=== PATIENT | male | born 1955 | race Caucasian/White ===

== ENCOUNTER → 2018-03-18 15:08 | Outpatient (CLI) | payer BC, SELFPAY ==
[2018-03-18 18:10] LABS: Anion Gap 9 (5-15); BUN 17 mg/dL (7-18); BUN/Creat Ratio 19.6 RATIO (10-20); Calcium,Total 8.8 mg/dL (8.5-10.1); Chloride 103 mmol/L (98-107); Creatinine, Serum 0.87 mg/dL (0.70-1.30); EST Glomerular Filtration Rate 94 mL/min (>60); Est Glom Filt Rate - Afr Amer 114 mL/min (>60); Glucose 141 mg/dL (74-106); PSA,Total - Annual Screen 0.58 ng/mL (0.00-4.00); Potassium 3.7 mmol/L (3.5-5.1); Sodium Level 138 mmol/L (136-145)
== END ==
PROVIDERS: Family Provider Family Medicine; PCP Family Medicine; Visit Provider Family Medicine
DX: I10 Essential (primary) hypertension (principal); Z12.5 Encounter for screening for malignant neoplasm of prostate
CPT/HCPCS: 36415; 80048; 84153; G0103

== ENCOUNTER → 2019-03-08 08:18 | Outpatient (CLI) | payer BC, SELFPAY ==
[2019-03-08 10:30] LABS: ALB/GLOB Ratio 1.1 RATIO (0.9-2.4); AST(SGOT) 19 U/L (15-37); Alanine Aminotransfer ALT/SGPT 39 U/L (16-61); Albumin, Serum 3.8 g/dL (3.2-5.0); Alkaline Phosphatase 73 U/L (45-117); Anion Gap 5 (5-15); BUN 15 mg/dL (7-18); BUN/Creat Ratio 16.2 RATIO (10-20); Chloride 104 mmol/L (98-107); Cholesterol 136 mg/dL (200); Creatinine, Serum 0.92 mg/dL (0.70-1.30); EST Glomerular Filtration Rate 87 mL/min (>60); Est Glom Filt Rate - Afr Amer 105 mL/min (>60); Globulin 3.6 g/dL (2.2-4.2); Glucose 86 mg/dL (74-106); High Density Lipoprotein 40 mg/dL; PSA,Total - Annual Screen 0.59 ng/mL (0.00-4.00); Potassium 3.9 mmol/L (3.5-5.1); Protein, Total 7.4 g/dL (6.4-8.2); Sodium Level 138 mmol/L (136-145); Triglycerides 126 mg/dL; Very Low Density Lipoprotein 25 mg/dL (5-40)
== END ==
PROVIDERS: PCP Family Medicine; Referring Provider Family Medicine; Visit Provider Family Medicine
DX: I10 Essential (primary) hypertension (principal); Z12.5 Encounter for screening for malignant neoplasm of prostate
CPT/HCPCS: 36415; 80053; 80061; 84153; G0103

== ENCOUNTER → 2020-03-01 07:13 | Outpatient (CLI) | payer BC, SELFPAY ==
[2020-03-01 10:57] LABS: ALB/GLOB Ratio 1.1 RATIO (0.9-2.4); AST(SGOT) 22 U/L (15-37); Alanine Aminotransfer ALT/SGPT 35 U/L (16-61); Albumin, Serum 3.9 g/dL (3.2-5.0); Alkaline Phosphatase 78 U/L (45-117); Anion Gap 5 (5-15); BUN 18 mg/dL (7-18); BUN/Creat Ratio 21.3 RATIO (10-20); Calcium,Total 8.9 mg/dL (8.5-10.1); Chloride 104 mmol/L (98-107); Cholesterol 135 mg/dL (200); Creatinine, Serum 0.85 mg/dL (0.70-1.30); EST Glomerular Filtration Rate 96 mL/min (>60); Est Glom Filt Rate - Afr Amer 117 mL/min (>60); Globulin 3.4 g/dL (2.2-4.2); Glucose 88 mg/dL (74-106); High Density Lipoprotein 40 mg/dL; PSA,Total - Annual Screen 0.69 ng/mL (0.00-4.00); Potassium 3.9 mmol/L (3.5-5.1); Protein, Total 7.3 g/dL (6.4-8.2); Sodium Level 137 mmol/L (136-145); Triglycerides 134 mg/dL; Very Low Density Lipoprotein 27 mg/dL (5-40)
== END ==
PROVIDERS: PCP Family Medicine; Referring Provider Family Medicine; Visit Provider Family Medicine
DX: Z12.5 Encounter for screening for malignant neoplasm of prostate (principal); I10 Essential (primary) hypertension
CPT/HCPCS: 36415; 80053; 80061; 84153; G0103

== ENCOUNTER 2021-04-01 08:11 | Outpatient (CLI) | payer BC, SELFPAY ==
[2021-04-01 12:21] LABS: ALB/GLOB Ratio 1.1 RATIO (0.9-2.4); AST(SGOT) 22 U/L (15-37); Alanine Aminotransfer ALT/SGPT 32 U/L (16-61); Albumin, Serum 3.9 g/dL (3.2-5.0); Alkaline Phosphatase 77 U/L (45-117); Anion Gap 5 (5-15); BUN 18 mg/dL (7-18); BUN/Creat Ratio 18.3 RATIO (10-20); Chloride 106 mmol/L (98-107); Creatinine, Serum 0.99 mg/dL (0.70-1.30); EST Glomerular Filtration Rate 80 mL/min (>60); Est Glom Filt Rate - Afr Amer 97 mL/min (>60); Globulin 3.5 g/dL (2.2-4.2); Glucose 96 mg/dL (74-106); Potassium 4.1 mmol/L (3.5-5.1); Protein, Total 7.4 g/dL (6.4-8.2); Sodium Level 138 mmol/L (136-145)
[2021-04-01 13:25] LABS: Microalbumin,Random Urine 16.5 mg/L (NO RANGE EST.); Microalbumin:Creatinine Ratio 8.7 mg/g CRE (<30 mg/g CRE)
== END 2021-04-01 23:59 | disposition home or self-care (01) ==
PROVIDERS: PCP Family Medicine; Visit Provider Family Medicine
DX: I10 Essential (primary) hypertension (principal)
CPT/HCPCS: 36415; 80053; 82043; 82570

== ENCOUNTER → 2022-04-04 | Outpatient (CLI) | payer BC, SELFPAY ==
[2022-04-04 10:10] LABS: Absolute Lymphocyte Count 1.73 X10^3/uL (0.83-4.51); Absolute Neutrophil Count 4.4 X10^3/uL (2.0-7.7); Basophil# 0.09 X10^3/uL; Basophil% 1.2 % (0-1); Eosinophil# 0.14 X10^3/uL; Eosinophils% 1.9 % (0-5); Hematocrit 45.5 % (40-54); Hemoglobin 15.5 g/dL (13.0-16.5); Lymphocyte # 1.73 X10^3/ul (0.83-4.51); Lymphocyte % 23.7 % (19-41); Mean Corp Hgb Conc 34.1 g/dL (32-36); Mean Platelet Vol. 10.1 fl (6.2-12.0); Monocyte# 0.96 X10^3/uL; Monocyte% 13.1 % (0-10); NRBC Flagged by Analyzer 0 % (0-5); Neutrophil # 4.35 X10^3/uL (2.7-7.7); Neutrophil % 59.6 % (47-70); Platelet Count 246 K/mm3 (150-450); RBC Distribution Width CV 12.2 % (11.6-14.6); RBC Distribution Width SD 39.7 fl (35.1-43.9); Red Blood Count 5.17 M/mm3 (4.6-6.2); White Blood Count 7.3 K/mm3 (4.4-11.0)
[2022-04-04 10:25] LABS: Microalbumin,Random Urine 12.6 mg/L (NO RANGE EST.)
[2022-04-04 11:06] LABS: ALB/GLOB Ratio 1.1 RATIO (0.9-2.4); AST(SGOT) 23 U/L (15-37); Alanine Aminotransfer ALT/SGPT 25 U/L (16-61); Albumin, Serum 3.7 g/dL (3.2-5.0); Alkaline Phosphatase 77 U/L (45-117); Anion Gap 7 (5-15); BUN 18 mg/dL (7-18); BUN/Creat Ratio 21.4 RATIO (10-20); Calcium,Total 9.1 mg/dL (8.5-10.1); Chloride 105 mmol/L (98-107); Cholesterol 133 mg/dL (200); Creatinine, Serum 0.84 mg/dL (0.70-1.30); EST Glomerular Filtration Rate 96 mL/min (>60); Est Glom Filt Rate - Afr Amer 117 mL/min (>60); Globulin 3.5 g/dL (2.2-4.2); Glucose 91 mg/dL (74-106); High Density Lipoprotein 43 mg/dL; Potassium 4.1 mmol/L (3.5-5.1); Protein, Total 7.2 g/dL (6.4-8.2); Sodium Level 138 mmol/L (136-145); Triglycerides 99 mg/dL; Very Low Density Lipoprotein 20 mg/dL (5-40)
== END | disposition home or self-care (01) ==
LOC: MFPLAB 08:12
PROVIDERS: PCP Family Medicine; Referring Provider Family Medicine; Visit Provider Family Medicine
DX: I10 Essential (primary) hypertension (principal); Z12.5 Encounter for screening for malignant neoplasm of prostate
CPT/HCPCS: 36415; 80053; 80061; 82043; 84153; 85025; G0103

== ENCOUNTER → 2023-03-27 | Outpatient (CLI) | payer MEDICARE, SELFPAY ==
--- OUTSIDE RECORDS SUMMARY | 2023-03-27 08:30 | XMS RPT_ITS | CCD ---
Author Name Unknown Address [address] [place] [address] Organization [facility] Results Test Name Value Interpretation Reference Range Facil ity Progress note 01-16-2021 Note Date & Type Note Facility 01-16-2021 Note HNO ID: [id number] Author: Victoria Worthy PA-C Service: ? Author Type: Physician Marketing Teacher Type: Progress Notes Filed: 01/17/2021 12:11 PM Note Text: FOLLOW UP VISIT - HERNIA NAME: Kareem Koroma CLINIC NO.: [id number] DATE OF SERVICE: 01/16/2021 : 1955 REFERRING PHYSICIAN: Se Landeros MD Kareem is a patient I am following for a left inguinal hernia. Dr. Cuello performed a laparoscopic left inguinal hernia repair with mesh on 01/09/21. The patient currently notes no major complaints. his appetite has been good. he denies fever, chills or abdominal pain. he does note some mild incisional discomfort. he notes no bulges at the operative site VITALS: Blood pressure 150/81, pulse 104, temperature 36.9 ?C (98.4 ?F), height 185.4 cm (6' 1 ), weight 96.6 kg (213 lb), SpO2 96 %. General: patient is alert, cooperative, pleasant and in no acute distress On examination, the abdomen is benign. The incisions are healing well without signs of infection or inflammation. There are no signs of recurrent hernia formation. Assessment IMPRESSION: status post laparoscopic left inguinal hernia repair with mesh PLAN: If the patient notes any problems, he should contact me immediately. he may return to his regular activities as tolerated, with the exception of no lifting greater than 20 pounds for the next 7 weeks. If patient feels the urge to cough or sneeze, they should brace against the repair site with their hands or a pillow. Diagnoses: (Z98.890, Z87.19) S/P hernia repair (primary encounter diagnosis) Return to Clinic: The patient is instructed to follow-up with me as needed. Patient verbalized understanding of all above and agreed with the plan. Victoria Worthy PA-C [facility] Clinical Note 01-09-2021 Note Date & Type Note Facility 01-09-2021 Note HNO ID: [id number] Author: Nikunj Jacobsen APRN.BARBECUE COOK Service: Anesthesiology Author Type: Nurse Needle Felt Making Machine Operator Type: Anesthesia Procedure Notes Filed: 01/09/2021 7:56 AM Note Text: ANESTHESIOLOGY PROCEDURE NOTE Airway General Information Procedure Start Time/Medication Administration: 01/09/2021 7:40 AM Procedure End Time: 01/09/2021 7:44 AM Patient location during procedure: OR Timeout Performed Pre-procedure: timeout performed Consent Obtained: Yes Patient identity confirmed: arm band, care receiving team member and patient Staffing BARBECUE COOK: Nikunj Jacobsen APRN.DAVID Other anesthesia staff/rotator: Nikunj Jacobsen APRN.BARBECUE COOK Performed by: DAVID Indications and Patient Condition Preoxygenated: yes Patient position: sniffing Manual In-Line Stabilization: No Difficult Mask: No Indications for airway management: anesthesia anesthesia circuit Method: asleep Cricoid Pressure: Yes Final Airway Details Final airway type: endotracheal airway Final Endotracheal Airway: ETT Cuffed: yes Successful intubation technique: direct laryngoscopy Endotracheal tube insertion site: oral Blade: Guru Blade size: #4 ETT size (mm): 7.5 Measured from: lips Measurement (cm): 22 Placement verified by: chest auscultation and capnometry Cormack-Lehane Classification: grade IIb - view of arytenoids or posterior of glottis only Number of attempts at approach: 1 Failed airway: no Unrecognized esophageal intubation: no Airway not difficult SIGNATURE: Nikunj Jacobsen APRN.BARBECUE COOK PATIENT NAME: Kareem Koroma DATE: January 09, 2021 TIME: 7:52 AM CSN: [id number] [facility] Progress note 12-24-2020 Note Date & Type Note Facility 12-24-2020 Note HNO ID: [id number] Author: Fredy Cuello MD Service: ? Author Type: Physician Type: Progress Notes Filed: 12/24/2020 2:27 PM Note Text: HISTORY AND PHYSICAL Kareem Koroma 1955 REFERRING PHYSICIAN: Se Landeros MD CHIEF COMPLAINT: Consult HPI: Kareem is a 65 year old male with a complaint of a bulge and discomfort in his left inguinal region. The patient notes discomfort in this area with lifting. The symptoms have maintained, over the past 3 weeks. The patient notes no symptoms of bowel obstruction and denies nausea or vomiting. The patient was seen by his primary care physician who felt the patient has a hernia. Kareem was referred for evaluation and treatment. The patient is being seen by me today at the request of Dr. Se Landeros MD for my opinion and advice regarding Left inguinal hernia (primary encounter diagnosis). PAST MEDICAL HISTORY Diagnosis Date - Diverticulosis of colon (without mention of hemorrhage) - Unspecified essential hypertension Essential hypertension PAST SURGICAL HISTORY Procedure Laterality Date - COLONOSCOP W/ OR W/O [facility] SPEC 08/18/08 - LAP REPAIR INTIAL INGUINAL HERNIA 05-29-06 right inguinal - REMOVE TONSILS/ADENOIDS,<12 Y/O T/A (under age 12 years) Current Outpatient Medications Medication Sig - triamcinolone acetonide (NASACORT AQ NASAL) Use in the nose. - losartan (COZAAR) 50 mg tablet Take 50 mg by mouth once daily. - D3-red gicy-lrenrqpbtdc-nkwn (SUPER-D3+) 5,000-200 unit-mg cap Take by mouth once daily. - HYDROCHLOROTHIAZIDE 12.5 MG CAP Take 25 mg by mouth. - VITAMIN C 500 MG TAB Take one(1) tablet daily. - loratadine(CLARITIN 10 MG TAB) Take one(1) tablet daily as needed for allergy symptoms. (Patient not taking: ) - VITAMIN E 400 UNIT CAP Take one(1) tablet daily. (Patient not taking: Swallow whole. DO NOT crush or break. ) No current facility-administered medications for this visit. ALLERGIES: Patient has no known allergies. PERSONAL HISTORY: Social History Tobacco Use - Smoking status: Never Smoker - Smokeless tobacco: Never Used Substance Use Topics - Alcohol use: Yes Comment: rarely - Drug use: No FAMILY HISTORY: FAMILY HISTORY Problem Relation Age of Onset - Breast Cancer Mother liver cancer - Liver Cancer Mother - Dementia Father REVIEW OF SYMPTOMS: The review of systems data was entered by the nurse and reviewed by me Nursing Notes: Madison Vaca RN 12/24/2020 2:11 PM Signed REVIEW OF SYSTEMS: General: The patient denies fatigue, denies weight loss, denies weight gain, denies feeling hot, and denies feelings of cold. Eyes: The patient denies glaucoma, denies eye injury/surgery, wears glasses or contacts. Ear/Nose/Throat: The patient denies allergies, notes hayfever, denies ear infections, and denies bloody noses. Cardiovascular: The patient denies chest pain, denies heart disease, notes high blood pressure,denies cardiac stent, denies prior heart attack, denies irregular heart beat, denies high cholesterol, denies poor circulation, denies heart failure, other cardiac issues, denies claudication, denies cold feet, denies peripheral arterial stent. Respiratory: The patient denies tuberculosis, denies pneumonia, denies frequent cough, denies pulmonary embolism, denies shortness of breath, and denies coughing up blood. Gastrointestinal: The patient denies difficulty swallowing, denies acid reflux, denies ulcers, denies vomiting, denies jaundice/hepatitis, denies gallbladder problems, denies black or tarry stools, denies hemorrhoids, denies bleeding from rectum, denies diverticulitis, denies constipation, denies diarrhea, denies loss of stool control, and denies hernias. Kidney/Bladder: The patient denies kidney stones, denies urine infections, and denies bloody urine. Skin: The patient denies a history of skin cancer, denies bleeding/changing moles, and denies a history of skin rash. Neurologic: The patient denies a history of epilepsy/convulsions, denies headaches, denies head/spinal injuries, and denies stroke/TIA. Psychiatric: The patient denies psychiatric medications, denies depression, and denies voices, denies substance abuse. Endocrine: The patient denies thyroid disorders, denies diabetes, and denies hormonal problems. Hematologic: The patient denies a history of bruising, denies bleeding, and denies anemia, denies blood clots. Infections: The patient notes a history of measles and mumps, denies rheumatic fever, and denies sexually transmitted diseases. Musculoskeletal: The patient denies back pain/injury, denies back problems, denies sciatica, denies knee/foot trouble, denies arthritis, or denies gout. When was patient's last Mammogram screening? N/A Last Colonoscopy: 2008 Madison Vaca RN PHYSICAL EXAMINATION: General: The patient is 65 year old male, well nourished, well hydrated in no acute distress. The patient is oriented to (more content not included)... [facility] Summary Purpose Family History No Family History Records FoundNo Family History Records Found Advance Directives No Advanced Directives Records FoundNo Advanced Directives Records Found Additional Source Comments (unrecognized sect ion and content) No Status Records FoundNo Status Records Found INFORMATION SOURCE (unrecogn ized section and content) DATE CREATED AUTHOR AUTHOR'S XIOMY SCALES 03/18/2021 [facility] FOR RECORDS PERTAINING TO PATIENTS WHO ARE OR HAVE BEEN ENROLLED IN A CHEMICAL DEPENDENCY/SUBSTANCEABUSE PROGRAM, SOME INFORMATION MAY BE OMITTED. This clinical summary was aggregated from multiple sources. Caution should be exercised in using it in the provision of clinical care. This summary normalizes information from multiple sources, and as a consequence, information in this document may materially change the coding, format and clinical context of patient data. In addition, data may be omitted in some cases. CLINICAL DECISIONS SHOULD BE BASED ON THE PRIMARY CLINICAL RECORDS. [facility] [employer] [facility]. provides no warranty or guarantee of the accuracy or completeness of information in this document.
[2023-03-27 11:05] LABS: ALB/GLOB Ratio 1.1 RATIO (0.9-2.4); AST(SGOT) 29 U/L (15-37); Alanine Aminotransfer ALT/SGPT 35 U/L (16-61); Albumin, Serum 3.9 g/dL (3.2-5.0); Alkaline Phosphatase 79 U/L (45-117); Anion Gap 6 (5-15); BUN 17 mg/dL (7-18); BUN/Creat Ratio 19.7 RATIO (10-20); Calcium,Total 9.3 mg/dL (8.5-10.1); Chloride 107 mmol/L (98-107); Cholesterol 147 mg/dL (200); Creatinine, Serum 0.86 mg/dL (0.70-1.30); EST Glomerular Filtration Rate 93 mL/min (>60); Est Glom Filt Rate - Afr Amer 113 mL/min (>60); Globulin 3.4 g/dL (2.2-4.2); Glucose 114 mg/dL (74-106); High Density Lipoprotein 51 mg/dL; Potassium 4.3 mmol/L (3.5-5.1); Protein, Total 7.3 g/dL (6.4-8.2); Sodium Level 138 mmol/L (136-145); Triglycerides 64 mg/dL; Very Low Density Lipoprotein 13 mg/dL (5-40)
[2023-03-27 11:16] LABS: Microalbumin,Random Urine 8.4 mg/L (NO RANGE EST.); Microalbumin:Creatinine Ratio 8.6 mg/g CRE (<30 mg/g CRE)
== END | disposition home or self-care (01) ==
LOC: MTLAB 08:10
PROVIDERS: PCP Family Medicine; Referring Provider Family Medicine; Visit Provider Family Medicine
DX: I10 Essential (primary) hypertension (principal); Z12.5 Encounter for screening for malignant neoplasm of prostate
CPT/HCPCS: 36415; 80053; 80061; 82043; 82570

== ENCOUNTER 2023-04-29 09:40 | Day surgery (SDC) | payer MEDICARE, SELFPAY ==
[2023-04-29 10:23] VITALS: BP 131/75; PULSE 68; RESP 16; TEMP 36.9; O2SAT 98; BMI 26.3
[2023-04-29] MEDS: Lactated Ringers 1,000 ML 15 ML IV (10:26)
--- NOTE | 2023-04-29 11:00 | COLBX_PTH ---
PATIENT: SONY MONTALVO LOC: EN U#:[id number] AGE/SX: 67/M ROOM: RE04/29/[address]: Dr. Carlito Guo DO : 1955 BED: DIS: 04/29/2023 SPEC #: [id number] RECD: 04/29/23 12:07 STATUS: RHEA LASHA #: [id number] FARHAN: 04/29/23 11:[address]: Carlito Guo DEPT: SURGICAL PATHOLOGY RECD BY: Samantha Bruno ENTERED: 04/29/23 13:15 SP TYPE: COLON BX OTHR DR: MD Cadence Canales DO Tissues: A - COLON BIOPSY B - Ascending colon Procedures: Surgery Specimen Level IV HEADER OPERATION: Colonoscopy- Open access with biopsy and polypectomy PRE-OP DIAGNOSIS: Screening colonoscopy TISSUE SUBMITTED: A- Splenic flexure polyp, B- Ascending colon polyp biopsy MICROSCOPIC DIAGNOSIS A. Splenic flexure polyp, polypectomy; Fragments of tubular adenoma. B. Ascending colon polyp, biopsy; Tubular adenoma. / 04/30/2023 MICROSCOPIC DESCRIPTION Slides are reviewed. GROSS DESCRIPTION A. Received in fixative is one container labeled with the patient's name and designated Splenic flexure polyp. The specimen consists of two irregular fragments of light rowell soft tissue that in aggregate measure 0.8 x 0.3 x 0.1 cm. The specimen is totally submitted in one cassette. B. Received in fixative is one container labeled with the patient's name and designated Ascending colon polyp biopsy. The specimen consists of one irregular fragment of light rowell soft tissue that measures 0.3 x 0.2 x 0.1 cm. The specimen is totally submitted in one cassette. / 04/29/2023 TC:1 CPT: 56915e6
--- NOTE | 2023-04-29 11:01 | PCM.HP.STD ---
[facility] - General General Date of Admission: 04/29/23 Date of Service: 04/29/23 Chief Complaint: Screening colonoscopy HPI Narrative SONY MONTALVO, is a 67 M who presents today for screening colonoscopy. He had a colonoscopy approximately 11 years ago and that was normal except for some mild diverticular disease. He is not having any abdominal pain. He does not have any cramping. He does not have any chest pain shortness of breath. His only other past medical history is mild high blood pressure which is controlled with medicines. [facility] Medical History (Updated 04/27/23 @ 14:58 by Javon Reagan) Former smoker HTN (hypertension) Wears dentures Wears glasses Wears hearing aid Home Medications ascorbate calcium-bioflavonoid 1,000 mg-200 mg tablet (Emi-C with Bioflavonoids) 1 tab PO DAILY 03/20/23 [History Last Taken 04/28/23 06:30] cholecalciferol (vitamin D3) 125 mcg (5,000 unit) capsule 125 mcg PO DAILY 03/20/23 [History Last Taken 04/28/23 06:30] hydrochlorothiazide 25 mg tablet 25 mg PO DAILY 03/20/23 [History Last Taken 04/28/23 06:30] losartan 50 mg tablet 50 mg PO DAILY 03/20/23 [History Last Taken 04/29/23 07:00] sildenafil 50 mg tablet (Viagra) 50 mg PO DAILY PRN sexual activity 03/20/23 [History Last Taken Unknown] Allergy/AdvReac Type Severity Reaction Status Date / Time No Known Allergies Allergy Verified 04/29/23 10:21 Surgical History (Updated 04/27/23 @ 14:58 by Javon Reagan) H/O hernia repair Hx of colonoscopy Social History (Updated 03/20/23 @ 11:39 by Taty Velazquez) household members: spouse current occupational status: retired Smoking Status: Former smoker details: Occasional beer substance use type: does not use ROS Review of Systems ROS Unobtainable: other Constitutional Constitutional: Denies fatigue, fever(s), poor appetite, weight gain or weight loss ENT HEENT: Denies mouth lesions Cardiovascular Cardiovascular: Denies abdominal bloating, abdominal edema or abdominal pain Respiratory/Chest Respiratory/Chest: Denies change in mental status, change in phlegm color, chest congestion or chest tightness Gastrointestinal Gastrointestinal: Denies belching, bloating, change in bowel habits, change in stool character, chewing difficulty, coffee ground emesis, constipation, cramping, diarrhea, dyspepsia, dysphagia, early satiety, excessive flatus, fecal incontinence, heartburn, hematemesis, hematochezia, hemorrhoids, loose stools, melena, nausea, odynophagia, rectal bleeding, tenesmus, vomiting or weight changes Genitourinary Genitourinary: Denies abdominal discomfort, burning urination or itching Musculoskeletal Musculoskeletal: Reports as per HPI; Denies muscle weakness or myalgias Integumentary Integumentary: Denies jaundice Neurologic Neurologic: Denies lack of coordination or weakness Psychiatric Psychiatric: Denies confusion, depression, memory loss, mood swings, paranoia or suicidal ideation Endocrine Endocrinology: Denies systems reviewed and no addt'l complaints, except as documented Hematologic/Lymphatic Hematologic/Lymphatic: Denies anemia, easy bleeding, easy bruising or lymphadenopathy Allergic/Immunologic Allergic/Immunologic: Denies systems reviewed and no addt'l complaints, except as documented Vital Signs Vital Signs Vital Signs: 04/29/23 10:23 04/29/23 10:23 Temperature 98.4 F Temperature Source Temporal Pulse Rate 68 Respiratory Rate 16 Respiratory Pattern Normal Blood Pressure 131/75 H Blood Pressure Mean 93 Blood Pressure Source Monitor Blood Pressure Position Sitting Blood Pressure Location Right Arm Pulse Ox 98 Oxygen Delivery Method Room Air Weight Weight: 194 lb 0.108 oz Body Mass Index (BMI) 26.3 Physical Exam Const alert General Appearance: cooperative Orientation / Consciousness: oriented to person HEENT hearing grossly normal bilaterally Head and Scalp: normal to inspection Face and Sinus: face symmetric Nose: external nose normal Mouth: oral and palatal mucosa normal Eyes conjunctivae normal General Eye: normal appearance of both eyes Neck full ROM General: normal visual inspection Lymph Lymphatic: no lymphadenopathy noted Chest inspection of chest normal and palpation of chest normal Chest: symmetrical chest wall rise Resp normal respiratory effort Effort and Inspection: able to speak in complete sentences Cardio regular rate GI non-distended Percussion: normal to percussion Rectal Exam: deferred Neuro Speech: speech normal Gait (Neuro): normal gait Assessment & Plan Assessment/Plan (1) Encounter for screening for malignant neoplasm of colon: PLAN: He was explained alternatives, risk, benefits including not withstanding bleeding, infection, sepsis, perforation, need for emergent surgery and . He will have an ASA of 2.
[2023-04-29 11:40] VITALS: BP 131/75; BP 96/71; PULSE 70; RESP 14; TEMP 36.4; O2SAT 96
[2023-04-29 11:45] VITALS: BP 131/75; BP 94/71; PULSE 67; RESP 14; O2SAT 95
--- NOTE | 2023-04-29 11:45 | OP.CCLET_ITS ---
04/29/2023 Cadence Oropeza Do Re : Colonoscopy procedure for Kareem Webster Dear Sandip This procedure was performed on Saturday, April 29, 2023. My impressions and recommendations are as follows: Impressions : - Diverticulosis in the recto-sigmoid colon and in the sigmoid colon. - One 8 mm polyp in the sigmoid colon, removed with a hot snare. Resected and retrieved. - One 4 mm polyp in the ascending colon, removed with a jumbo cold forceps. Resected and retrieved. - The examination was otherwise normal on direct and retroflexion views. Recommendations : - Discharge patient to home. - Resume previous diet. - Continue present medications. - Await pathology results. - Repeat colonoscopy in 5 years for surveillance. My findings are described in the full procedure note, which is enclosed. If I can be of further assistance, please feel free to contact me at . Sincerely, Carlito Guo DO 04/29/2023 11:44:46 AM This report has been signed electronically.
--- NOTE | 2023-04-29 11:45 | OP.COLON_ITS ---
Patient Name: Kareem Webster Procedure Date: 04/29/2023 11:03 AM Date of : 1955 Age: 67 Procedure: Colonoscopy Indications: Screening for colorectal malignant neoplasm Providers: Carlito Guo DO Medicines: Monitored Anesthesia Care Patient Profile: This is a 67 year old male. Refer to note in patient chart for documentation of history and physical. Last Colonoscopy: more than 10 years ago. Complications: No immediate complications. Procedure: Pre-Anesthesia Assessment: - Prior to the procedure, a History and Physical was performed, and patient medications and allergies were reviewed. The patient is competent. The risks and benefits of the procedure and the sedation options and risks were discussed with the patient. All questions were answered and informed consent was obtained. Patient identification and proposed procedure were verified by the physician in the pre-procedure area. Mental Status Examination: alert and oriented. Airway Examination: normal oropharyngeal airway and neck mobility. Respiratory Examination: clear to auscultation. CV Examination: normal. Prophylactic Antibiotics: The patient does not require prophylactic antibiotics. Prior Anticoagulants: The patient has taken no anticoagulant or antiplatelet agents. ASA Grade Assessment: II - A patient with mild systemic disease. After reviewing the risks and benefits, the patient was deemed in satisfactory condition to undergo the procedure. The anesthesia plan was to use monitored anesthesia care (MAC). Immediately prior to administration of medications, the patient was re-assessed for adequacy to receive sedatives. The heart rate, respiratory rate, oxygen saturations, blood pressure, adequacy of pulmonary ventilation, and response to care were monitored throughout the procedure. The physical status of the patient was re-assessed after the procedure. After I obtained informed consent, the scope was passed under direct vision. Throughout the procedure, the patient's blood pressure, pulse, and oxygen saturations were monitored continuously. The Colonoscope was introduced through the anus and advanced to the cecum, identified by appendiceal orifice and ileocecal valve. The colonoscopy was performed without difficulty. The patient tolerated the procedure well. The quality of the bowel preparation was good. The ileocecal valve, appendiceal orifice, and rectum were photographed. Scope In: 11:19:17 AM Scope Withdrawal Time 0 hours 8 minutes 33 seconds Scope Out: 11:35:26 AM Total Procedure Duration Time 0 hours 16 minutes 9 seconds Findings: The perianal and digital rectal examinations were normal. A few small-mouthed diverticula were found in the recto-sigmoid colon and sigmoid colon. An 8 mm polyp was found in the sigmoid colon. The polyp was sessile. The polyp was removed with a hot snare. Resection and retrieval were complete. Verification of patient identification for the specimen was done. Estimated blood loss was minimal. A 4 mm polyp was found in the ascending colon. The polyp was sessile. The polyp was removed with a jumbo cold forceps. Resection and retrieval were complete. Estimated blood loss: none. The exam was otherwise without abnormality on direct and retroflexion views. Impression: - Diverticulosis in the recto-sigmoid colon and in the sigmoid colon. - One 8 mm polyp in the sigmoid colon, removed with a hot snare. Resected and retrieved. - One 4 mm polyp in the ascending colon, removed with a jumbo cold forceps. Resected and retrieved. - The examination was otherwise normal on direct and retroflexion views. Recommendation: - Discharge patient to home. - Resume previous diet. - Continue present medications. - Await pathology results. - Repeat colonoscopy in 5 years for surveillance. Procedure Code(s): --- Professional --- 53334, Colonoscopy, flexible; with removal of tumor(s), polyp(s), or other lesion(s) by snare technique 18431, 59, Colonoscopy, flexible; with biopsy, single or multiple CPT copyright 2021 [employer]. All rights reserved. The codes documented in this report are preliminary and upon predatory hunter review may be revised to meet current compliance requirements. Carlito Guo DO 04/29/2023 11:44:46 AM This report has been signed electronically. Number of Addenda: 0 Note Initiated On: 04/29/2023 11:03 AM
[2023-04-29 11:50] VITALS: BP 131/75; BP 96/72; PULSE 65; RESP 14; TEMP 36.4; O2SAT 95
[2023-04-29 12:05] VITALS: BP 131/75
== END 2023-04-29 12:17 | disposition home or self-care (01) ==
LOC: EN 09:42 → AC 09:44
PROVIDERS: PCP Family Medicine; Referring Provider Family Medicine; Visit Provider Internal Medicine Gastroenterology
PROC: 0DJD8ZZ Inspection of Lower Intestinal Tract, Via Natural or Artificial Opening Endoscopic (ICD-10-PCS; CPT 45378; principal; 2023-04-29 10:55)
DX: Z12.11 Encounter for screening for malignant neoplasm of colon (principal); D12.2 Benign neoplasm of ascending colon; D12.3 Benign neoplasm of transverse colon; K57.30 Diverticulosis of large intestine without perforation or abscess without bleeding; I10 Essential (primary) hypertension; Z79.899 Other long term (current) drug therapy; Z87.891 Personal history of nicotine dependence
CPT/HCPCS: 45385; 45380; 88305; J7120; J2405

== ENCOUNTER → 2024-03-29 | Outpatient (CLI) | payer MEDICARE, SELFPAY ==
[2024-03-29 12:44] LABS: Absolute Lymphocyte Count 1.05 X10^3/uL (0.83-4.51); Absolute Neutrophil Count 4.7 X10^3/uL (2.0-7.7); Basophil# 0.04 X10^3/uL; Basophil% 0.6 % (0-1); Eosinophil# 0.11 X10^3/uL; Eosinophils% 1.6 % (0-5); Hematocrit 44.8 % (40-54); Hemoglobin 14.6 g/dL (13.0-16.5); Lymphocyte # 1.05 X10^3/ul (0.83-4.51); Lymphocyte % 14.8 % (19-41); Mean Corp Hgb Conc 32.6 g/dL (32-36); Mean Corpuscular Hgb 29.3 pg (27.0-32.0); Mean Platelet Vol. 10.1 fl (6.2-12.0); Monocyte# 1.19 X10^3/uL; Monocyte% 16.8 % (0-10); NRBC Flagged by Analyzer 0.3 % (0-5); Neutrophil # 4.68 X10^3/uL (2.7-7.7); Neutrophil % 65.9 % (47-70); Platelet Count 219 K/mm3 (150-450); RBC Distribution Width CV 12.3 % (11.6-14.6); RBC Distribution Width SD 40.3 fl (35.1-43.9); Red Blood Count 4.98 M/mm3 (4.6-6.2); White Blood Count 7.1 K/mm3 (4.4-11.0)
[2024-03-29 13:44] LABS: Microalbumin,Random Urine 6.7 mg/L (NO RANGE EST.); Microalbumin:Creatinine Ratio 8.4 mg/g CRE (<30 mg/g CRE)
[2024-03-29 13:50] LABS: Anion Gap 6 (5-15); BUN 14 mg/dL (7-18); BUN/Creat Ratio 15.8 RATIO (10-20); Calcium,Total 9.2 mg/dL (8.5-10.1); Chloride 105 mmol/L (98-107); Cholesterol 152 mg/dL (200); Creatinine, Serum 0.88 mg/dL (0.70-1.30); EST Glomerular Filtration Rate 90 mL/min (>60); Est Glom Filt Rate - Afr Amer 109 mL/min (>60); Glucose 96 mg/dL (74-106); High Density Lipoprotein 46 mg/dL; PSA,Total - Annual Screen 0.55 ng/mL (0.00-4.00); Sodium Level 137 mmol/L (136-145); Triglycerides 69 mg/dL; Very Low Density Lipoprotein 14 mg/dL (5-40)
== END | disposition home or self-care (01) ==
LOC: MFPLAB 09:21
PROVIDERS: PCP Family Medicine; Referring Provider Family Medicine; Visit Provider Family Medicine
DX: I10 Essential (primary) hypertension (principal); E66.3 Overweight; Z12.5 Encounter for screening for malignant neoplasm of prostate
CPT/HCPCS: 36415; 80048; 80061; 82043; 82570; 84153; 85025; G0103

== ENCOUNTER 2024-10-08 10:14 | Emergency (ER) | payer MEDICARE, SELFPAY ==
[2024-10-08 10:15] VITALS: BP 152/95; PULSE 95; RESP 16; TEMP 36.7; O2SAT 99; BMI 27.1
--- NOTE | 2024-10-08 10:48 | ED.RN ---
pt has hx of food getting stuck, he has been able to get it out usually on his own at home, used the coke trick. pts father had the same issue in past years. ate iraheta around 0700 this morning
--- OUTSIDE RECORDS SUMMARY | 2024-10-08 10:50 | XMS RPT_ITS | CCD ---
Author Organization [facility] Care Team Providers Care Looper Operator Name Role Phone DO Cadence Oropeza Primary Care Provider Taty Velazquez Attending Provider Unavailable DO Cadence Oropeza Primary Care Provider Taty Velazquez Attending Provider Unavailable DO Cadence Oropeza Referring Provider Friend, Dr. Esteban Attending Provider Friend, Dr. Esteban Other Provider MD Yvon Baron Primary Care Provider [phone] Yvon Baron Primary Care Unavailable Carlito Guo Attending Unavailable Cadence Oropeza Referring Unavailable Yvon Baron Attending Unavailable Yvon Baron Referring Unavailable Yvon Baron Primary Care Unavailable Carlito Guo Consulting Unavailable Carlito Guo Attending Unavailable Cadence Oropeza Referring Unavailable Yvon Baron Primary Care Unavailable Medications Current Medications Medication Drug Class(es) Dates Sig (Normalized) Sig (Original) Ascorbate Calcium-Bioflavonoi d (Emi-C With Bioflavonoids) 1,000-200 mg tablet (2 sources) Start: 03-20-2023 take 1 tablet by mouth once daily Ascorbate Calcium-Bioflavono id (Emi-C With Bioflavonoids) 1,000-200 mg tablet Active 1 TABLET PO DAILY March 20, 2023 1:00am Start: 03-20-2023 Ascorbate Calc ium-Bioflavonoid (Emi-C With Bioflavonoids) 1,000-200 mg tablet Active TABLET PO March 20, 2023 12:00am cholecalciferol 0.125 mg oral capsule (2 sources) Vitamin D Start: 03-20-2023 take 125 ug by mouth once daily Cholecalciferol (Vitamin D3) Active 125 MCG PO DAILY March 20, 2023 1:00am hydroCHLOROthiazide 25 mg oral tablet (2 sources) Thiazide Diuretic Start: 03-20-2023 take 25 mg by mouth once daily Hydrochlorothiazide Active 25 MG PO DAILY March 20, 2023 1:00am losartan potassium 50 mg oral tablet (2 sources) Angiotensin 2 Receptor Dimple Start: 03-20-2023 take 50 mg by mouth once daily Losartan Active 50 MG PO DAILY March 20, 2023 1:00am sildenafil 50 mg oral tablet (2 sources) Phosphodiesterase 5 Inhibitor Start: 03-20-2023 Sildenafil (Viagra) 50 mg tablet Active 50 MG PO DAILY March 20, 2023 1:00am administer 30 minutes to 4 hours before activity Problems Active Problems Problem Classification Problem Date Documented Da te Episodic/Chronic Essential hypertension (1 source) Essential (primary) hypertension; Translations: [Essential (primary) hypertension] Onset: 04-10-2024 Chronic Past or Other Problems Problem Classification Problem Date Documented Da te Episodic/Chronic Other screening for suspected conditions (not mental disorders or infectious disease) (5 sources) Patient encounter status; Translations: [Encounter for screening for malignant neoplasm of colon] Onset: 05-05-2023 03-20-2023 Episodic Results Test Name Value Interpretation Reference Range Facility Basic Metabolic Profile (BMP )on 03-29-2024 BUN/CRE 15.8 RATIO Normal 10-20 [facility] Comment on above: Order Comment: Order Date: 03/29/24 Order Info: [id number] - BMP Order Info: [id number] - LIPID Order Info: [id number] - PSA Performed By: #### L 100.0100, L501.9910, L500.2500, L500.4100, L502.0250 #### [facility] [address] [place], [address] CA,Total 9.2 mg/dL Normal 8.5-10.1 [facility] Comment on above: Order Comment: Order Date: 03/29/24 Order Info: [id number] - BMP Order Info: [id number] - LIPID Order Info: [id number] - PSA Performed By: #### L 100.0100, L501.9910, L500.2500, L500.4100, L502.0250 #### [facility] [address] [place], [address] Chloride [Moles/Vol] 105 mmol/L Normal 98-107 [facility] Comment on above: Order Comment: Order Date: 03/29/24 Order Info: [id number] - BMP Order Info: [id number] - LIPID Order Info: [id number] - PSA Performed By: #### L 100.0100, L501.9910, L500.2500, L500.4100, L502.0250 #### [facility] [address] [place], [address] CO2 [Moles/Vol] 26.0 mmol/L Normal 21.0-32.0 [facility] Comment on above: Order Comment: Order Date: 03/29/24 Order Info: 0667- - BMP Order Info: [id number] - LIPID Order Info: [id number] - PSA Performed By: #### L 100.0100, L501.9910, L500.2500, L500.4100, L502.0250 #### [facility] [address] [place], [address] Creatinine [Mass/Vol] 0.88 mg/dL Normal 0.70-1.30 [facility] Comment on above: Order Comment: Order Date: 03/29/24 Order Info: [id number] - BMP Order Info: [id number] - LIPID Order Info: [id number] - PSA Result Comment: The validity of the calculated GFR GFRAA in patients over 70 years has not been determined. Clinical correlation is essential. Performed By: #### L 100.0100, L501.9910, L500.2500, L500.4100, L502.0250 #### [facility] [address] [place], [address] EST GFR - AA 109 mL/min Normal >60 [facility] Comment on above: Order Comment: Order Date: 03/29/24 Order Info: [id number] - BMP Order Info: - LIPID Order Info: [id number] - PSA Result Comment: Afri can [place] GFR Calc Performed By: #### L 100.0100, L501.9910, L500.2500, L500.4100, L502.0250 #### [facility] [address] [place], [address] GAP 6 Normal 5-15 [facility] Comment on above: Order Comment: Order Date: 03/29/24 Order Info: [id number] - BMP Order Info: - LIPID Order Info: [id number] - PSA Performed By: #### L 100.0100, L501.9910, L500.2500, L500.4100, L502.0250 #### [facility] [address] [place], [place], [id number] GFR/1.73 sq M.predicted among non-blacks MDRD (S/P/Bld) [Vol rate/Area] 90 mL/min/{1.73_m2} Normal >60 [facility] Comment on above: Order Comment: Order Date: 03/29/24 Order Info: [id number] - BMP Order Info: - LIPID Order Info: [id number] - PSA Result Comment: Non- GFR Calc Performed By: #### L 100.0100, L501.9910, L500.2500, L500.4100, L502.0250 #### [facility] [address] [place], [address] Glucose [Mass/Vol] 96 mg/dL Normal 74-106 [facility] Comment on above: Order Comment: Order Date: 03/29/24 Order Info: [id number] - BMP Order Info: - LIPID Order Info: [id number] - PSA Performed By: #### L 100.0100, L501.9910, L500.2500, L500.4100, L502.0250 #### [facility] [address] [place], [address] Potassium [Moles/Vol] 4.0 mmol/L Normal 3.5-5.1 [facility] Comment on above: Order Comment: Order Date: 03/29/24 Order Info: 06- - BMP Order Info: [id number] - LIPID Order Info: [id number] - PSA Performed By: #### L 100.0100, L501.9910, L500.2500, L500.4100, L502.0250 #### [facility] [address] [place], [address] Sodium [Moles/Vol] 137 mmol/L Normal 136-145 [facility] Comment on above: Order Comment: Order Date: 03/29/24 Order Info: 06 - BMP Order Info: [id number] - LIPID Order Info: [id number] - PSA Performed By: #### L 100.0100, L501.9910, L500.2500, L500.4100, L502.0250 #### [facility] [address] [place], [address] Urea nitrogen [Mass/Vol] 14 mg/dL Normal 7-18 [facility] Comment on above: Order Comment: Order Date: 03/29/24 Order Info: 06 - BMP Order Info: [id number] - LIPID Order Info: [id number] - PSA Performed By: #### L 100.0100, L501.9910, L500.2500, L500.4100, L502.0250 #### [facility] [address] [place], [address] CBC W/Diff, Automatedon 03-12 Absolute Lymph 1.05 X10 3/uL Normal 0.83-4.51 [facility] Comment on above: Order Comment: Order Date: 03/29/24 Order Info: [id number] - CBCD Performed By: #### L 100.0100, L501.9910, L500.2500, L500.4100, L502.0250 #### [facility] [address] [place], [address] Absolute Neut 4.7 X10 3/uL Normal 2.0-7.7 [facility] Comment on above: Order Comment: Order Date: 03/29/24 Order Info: [id number] - CBCD Performed By: #### L 100.0100, L501.9910, L500.2500, L500.4100, L502.0250 #### [facility] [address] [place], [address] Basophils/100 WBC (Bld) 0.6 % Normal 0-1 [facility] Comment on above: Order Comment: Order Date: 03/29/24 Order Info: 018- - CBCD Performed By: #### L 100.0100, L501.9910, L500.2500, L500.4100, L502.0250 #### [facility] [address] [place], [address] Eosinophils/100 WBC (Bld) 1.6 % Normal 0-5 [facility] Comment on above: Order Comment: Order Date: 03/29/24 Order Info: 018- - CBCD Performed By: #### L 100.0100, L501.9910, L500.2500, L500.4100, L502.0250 #### [facility] [address] [place], [address] Erythrocyte distribution width (RBC) [Ratio] 12.3 % Normal 11.6-14.6 [facility] Comment on above: Order Comment: Order Date: 03/29/24 Order Info: 018-1 - CBCD Performed By: #### L 100.0100, L501.9910, L500.2500, L500.4100, L502.0250 #### [facility] [address] [place], [address] Hematocrit (Bld) [Volume fraction] 44.8 % Normal 40-54 [facility] Comment on above: Order Comment: Order Date: 03/29/24 Order Info: [id number] - CBCD Performed By: #### L 100.0100, L501.9910, L500.2500, L500.4100, L502.0250 #### [facility] [address] [place], [address] Hemoglobin (Bld) [Mass/Vol] 14.6 g/dL Normal 13.0-16.5 [facility] Comment on above: Order Comment: Order Date: 03/29/24 Order Info: 0184-1 - CBCD Performed By: #### L 100.0100, L501.9910, L500.2500, L500.4100, L502.0250 #### [facility] [address] [place], [address] IG% 0.300 Normal 0.0-0.9 [facility] Comment on above: Order Comment: Order Date: 03/29/24 Order Info: [id number] - CBCD Result Comment: IG% - Immature Granulocytes (promyelocytes, myelocytes and metamyelocytes) > 1% indicates that a LEFT SHIFT is Present. Performed By: #### L 100.0100, L501.9910, L500.2500, L500.4100, L502.0250 #### [facility] [address] [place], [address] Lymphocytes/100 WBC (Bld) 14.8 % Low 19-41 [facility] Comment on above: Order Comment: Order Date: 03/29/24 Order Info: 0184-1 - CBCD Performed By: #### L 100.0100, L501.9910, L500.2500, L500.4100, L502.0250 #### [facility] [address] [place], [address] MCH (RBC) [Entitic mass] 29.3 pg Normal 27.0-32.0 [facility] Comment on above: Order Comment: Order Date: 03/29/24 Order Info: 0184-1 - CBCD Performed By: #### L 100.0100, L501.9910, L500.2500, L500.4100, L502.0250 #### [facility] [address] [place], [address] MCHC (RBC) [Mass/Vol] 32.6 g/dL Normal 32-36 [facility] Comment on above: Order Comment: Order Date: 03/29/24 Order Info: 0184-1 - CBCD Performed By: #### L 100.0100, L501.9910, L500.2500, L500.4100, L502.0250 #### [facility] [address] [facility] [place], [address] MCV (RBC) [Entitic vol] 90.0 fL Normal 80-94 [facility] Comment on above: Order Comment: Order Date: 03/29/24 Order Info: 0184-1 - CBCD Performed By: #### L 100.0100, L501.9910, L500.2500, L500.4100, L502.0250 #### [facility] [address] [facility] [place], [address] Monocytes/100 WBC (Bld) 16.8 % High 0-10 [facility] Comment on above: Order Comment: Order Date: 03/29/24 Order Info: 0184-1 - CBCD Performed By: #### L 100.0100, L501.9910, L500.2500, L500.4100, L502.0250 #### [facility] [address] [place], [address] Neutrophils/100 WBC (Bld) 65.9 % Normal 47-70 [facility] Comment on above: Order Comment: Order Date: 03/29/24 Order Info: 0184-1 - CBCD Performed By: #### L 100.0100, L501.9910, L500.2500, L500.4100, L502.0250 #### [facility] [address] [place], [address] Nucleated RBC (Bld) [#/Vol] 0.3 10*3/uL Normal 0-5 [facility] Comment on above: Order Comment: Order Date: 03/29/24 Order Info: 018- - CBCD Performed By: #### L 100.0100, L501.9910, L500.2500, L500.4100, L502.0250 #### [facility] [address] [place], [address] Platelet mean volume (Bld) [Entitic vol] 10.1 fL Normal 6.2-12.0 [facility] Comment on above: Order Comment: Order Date: 03/29/24 Order Info: 018- - CBCD Performed By: #### L 100.0100, L501.9910, L500.2500, L500.4100, L502.0250 #### [facility] [address] [place], [address] Platelets (Bld) [#/Vol] 219 10*3/uL Normal 150-450 [facility] Comment on above: Order Comment: Order Date: 03/29/24 Order Info: 018- - CBCD Performed By: #### L 100.0100, L501.9910, L500.2500, L500.4100, L502.0250 #### [facility] [address] [place], [address] RBC (Bld) [#/Vol] 4.98 10*6/uL Normal 4.6-6.2 [facility] Comment on above: Order Comment: Order Date: 03/29/24 Order Info: 018- - CBCD Performed By: #### L 100.0100, L501.9910, L500.2500, L500.4100, L502.0250 #### [facility] [address] [place], [address] RDW SD 40.3 fl Normal 35.1-43.9 [facility] Comment on above: Order Comment: Order Date: 03/29/24 Order Info: 0184-1 - CBCD Performed By: #### L 100.0100, L501.9910, L500.2500, L500.4100, L502.0250 #### [facility] [address] [place], [address] WBC (Bld) [#/Vol] 7.1 10*3/uL Normal 4.4-11.0 [facility] Comment on above: Order Comment: Order Date: 03/29/24 Order Info: 0184-1 - CBCD Performed By: #### L 100.0100, L501.9910, L500.2500, L500.4100, L502.0250 #### [facility] [address] [place], [address] Lipid Profileon 03-29-2024 Cholesterol [Mass/Vol] 152 mg/dL Normal 200 [facility] Comment on above: Order Comment: Order Date: 03/29/24 Order Info: 0667-1 - BMP Order Info: [id number] - LIPID Order Info: [id number] - PSA Result Comment: <200 mg/dL Desirable 200-240 mg/dL Borderline >240 mg/dL High Risk Performed By: #### L 100.0100, L501.9910, L500.2500, L500.4100, L502.0250 #### [facility] [address] [place], [address] Cholesterol in HDL [Mass/Vol] 46 mg/dL Normal [facility] Comment on above: Order Comment: Order Date: 03/29/24 Order Info: 0667-1 - BMP Order Info: [id number] - LIPID Order Info: [id number] - PSA Result Comment: The drugs N-Acetylcysteine and Metamizole may falsely depress this assay. Reference Range HDL <40 mg/dL Low HDL Cholesterol HDL >or= 60 mg/dL High HDL Cholesterol Performed By: #### L 100.0100, L501.9910, L500.2500, L500.4100, L502.0250 #### [facility] [address] [place], [address] Cholesterol in LDL [Mass/Vol] 92 mg/dL Normal 0-130 [facility] Comment on above: Order Comment: Order Date: 03/29/24 Order Info: 0667-1 - BMP Order Info: [id number] - LIPID Order Info: [id number] - PSA Performed By: #### L 100.0100, L501.9910, L500.2500, L500.4100, L502.0250 #### [facility] [address] [place], [address] Cholesterol in VLDL [Mass/Vol] 14 mg/dL Normal 5-40 [facility] Comment on above: Order Comment: Order Date: 03/29/24 Order Info: 0667- - BMP Order Info: [id number] - LIPID Order Info: [id number] - PSA Performed By: #### L 100.0100, L501.9910, L500.2500, L500.4100, L502.0250 #### [facility] [address] [place], [address] Triglyceride [Mass/Vol] 69 mg/dL Normal [facility] Comment on above: Order Comment: Order Date: 03/29/24 Order Info: 0667-1 - BMP Order Info: [id number] - LIPID Order Info: [id number] - PSA Result Comment: The drugs N-Acetylcysteine and Metamizole may falsely depress this assay. Serum Triglycerides Reference Interval Normal <150 mg/dL Borderline high 150 - 199 mg/dL High 200 - 499 mg/dL Very High > or = 500 mg/dL Performed By: #### L 100.0100, L501.9910, L500.2500, L500.4100, L502.0250 #### [facility] [address] [place], [address] Microalb:Creat Ratio,Random URon 03-29-2024 Creatinine [Mass/Vol] 79.00 mg/dL Normal NO RANGE EST. [facility] Comment on above: Order Comment: Order Date: 03/29/24 Order Info: [id number] - MIACRE Performed By: #### L 100.0100, L501.9910, L500.2500, L500.4100, L502.0250 #### [facility] [address] [place], [address] MALB:CRE 8.4 mg/g CRE Normal <30 mg/g CRE [facility] Comment on above: Order Comment: Order Date: 03/29/24 Order Info: 0779-1 - MIACRE Performed By: #### L 100.0100, L501.9910, L500.2500, L500.4100, L502.0250 #### [facility] [address] [place], [address] MICROALBUMIN,UR 6.7 mg/L Normal NO RANGE EST. [facility] Comment on above: Order Comment: Order Date: 03/29/24 Order Info: 0779-1 - MIACRE Performed By: #### L 100.0100, L501.9910, L500.2500, L500.4100, L502.0250 #### [facility] [address] [place], [address] PSA,Total - Annual Screenon 03-29-2024 PSA,TOT SCREEN 0.55 ng/mL Normal 0.00-4.00 [facility] Comment on above: Order Comment: Order Date: 03/29/24 Order Info: 0667-1 - BMP Order Info: [id number] - LIPID Order Info: [id number] - PSA Result Comment: This test was performed using the TPSA assay method for the [employer] chemistry system. Values obtained with different assay methods cannot be used interchangably. When changing PSA assays in the course of monitoring a patient, additional sequential testing should be carried out to confirm baseline values. Performed By: #### L 100.0100, L501.9910, L500.2500, L500.4100, L502.0250 #### [facility] [address] [place], [address] Colonoscopy Reporton 024 Colonoscopy Report [facility] Medical Records Department [address] [place] [address] Colonoscopy Report MR#: [id number] Acct: [id number] Name: SONY MONTALVO Rep #: [id number] : 1955 67 From: Carlito Guo DO PCP: Dr. Yvon Baron MD Status:REG [facility] [place] Patient Name: Sony Montalvo Procedure Date: 04/29/2023 11:03 AM Date of : 1955 Age: 67 Procedure: Colonoscopy Indications: Screening for colorectal malignant neoplasm Providers: Carlito Guo DO Medicines: Monitored Anesthesia Care Patient Profile: This is a 67 year old male. Refer to note in patient chart for documentation of history and physical. Last Colonoscopy: more than 10 years ago. Complications: No immediate complications. Procedure: Pre-Anesthesia Assessment: - Prior to the procedure, a History and Physical was performed, and patient medications and allergies were reviewed. The patient is competent. The risks and benefits of the procedure and the sedation options and risks were discussed with the patient. All questions were answered and informed consent was obtained. Patient identification and proposed procedure were verified by the physician in the pre-procedure area. Mental Status Examination: alert and oriented. Airway Examination: normal oropharyngeal airway and neck mobility. Respiratory Examination: clear to auscultation. CV Examination: normal. Prophylactic Antibiotics: The patient does not require prophylactic antibiotics. Prior Anticoagulants: The patient has taken no anticoagulant or antiplatelet agents. ASA Grade Assessment: II - A patient with mild systemic disease. After reviewing the risks and benefits, the patient was deemed in satisfactory condition to undergo the procedure. The anesthesia plan was to use monitored anesthesia care (MAC). Immediately prior to administration of medications, the patient was re-assessed for adequacy to receive sedatives. The heart rate, respiratory rate, oxygen saturations, blood pressure, adequacy of pulmonary ventilation, and response to care were monitored throughout the procedure. The physical status of the patient was re-assessed after the procedure. After I obtained informed consent, the scope was passed under direct vision. Throughout the procedure, the patient's blood pressure, pulse, and oxygen saturations were monitored continuously. The Colonoscope was introduced through the anus and advanced to the cecum, identified by appendiceal orifice and ileocecal valve. The colonoscopy was performed without difficulty. The patient tolerated the procedure well. The quality of the bowel preparation was good. The ileocecal valve, appendiceal orifice, and rectum were photographed. Scope In: 11:19:17 AM Scope Withdrawal Time 0 hours 8 minutes 33 seconds Scope Out: 11:35:26 AM Total Procedure Duration Time 0 hours 16 minutes 9 seconds Findings: The perianal and digital rectal examinations were normal. A few small-mouthed diverticula were found in the recto-sigmoid colon and sigmoid colon. An 8 mm polyp was found in the sigmoid colon. The polyp was sessile. The polyp was removed with a hot snare. Resection and retrieval were complete. Verification of patient identification for the specimen was done. Estimated blood loss was minimal. A 4 mm polyp was found in the ascending colon. The polyp was sessile. The polyp was removed with a jumbo cold forceps. Resection and retrieval were complete. Estimated blood loss: none. The exam was otherwise without abnormality on direct and retroflexion views. Impression: - Diverticulosis in the recto-sigmoid colon and in the sigmoid colon. - One 8 mm polyp in the sigmoid colon, removed with a hot snare. Resected and retrieved. - One 4 mm polyp in the ascending colon, removed with a jumbo cold forceps. Resected and retrieved. - The examination was otherwise normal on direct and retroflexion views. Recommendation: - Discharge patient to home. - Resume previous diet. - Continue present medications. - Await pathology results. - Repeat colonoscopy in 5 years for surveillance. Procedure Code(s): --- Professional --- 10194, Colonoscopy, flexible; with removal of tumor(s), polyp(s), or other lesion(s) by snare technique 73267, 59, Colonoscopy, flexible; with biopsy, single or multiple CPT copyright 2021 [employer] [place] [employer]. All rights reserved. The codes documented in this report are preliminary and upon clinical pharmacy manager review may be revised to meet current compliance requirements. Carlito Guo DO 04/29/2023 11:44:46 AM This report has been signed electronically. Number of Addenda: 0 Note Initiated On: 04/29/2023 11:03 AM 04/29/23 1145 Date Carlito Casonignlavinia Signature: Date ___ (more content not included)... Normal [facility] Surgery Specimen Level Adin 04-29-2023 Surgery Specimen Level IV Patient Age/Sex Location Account Attending Physician SONY MONTALVO 67/M EN [id number] Carlito Guo DO Specimen: [id number] Received: 04/29/23-1207 Status: RHEA Perea Num: [id number] Spec Type: COLON BX Subm Dr: Carlito Guo DO HEADER OPERATION: Colonoscopy- Open access with biopsy and polypectomy PRE-OP DIAGNOSIS: Screening colonoscopy TISSUE SUBMITTED: A- Splenic flexure polyp, B- Ascending colon polyp biopsy MICROSCOPIC DIAGNOSIS A. Splenic flexure polyp, polypectomy; Fragments of tubular adenoma. B. Ascending colon polyp, biopsy; Tubular adenoma. MEAGAN/ 04/30/2023 MICROSCOPIC DESCRIPTION Slides are reviewed. GROSS DESCRIPTION A. Received in fixative is one container labeled with the patient's name and designated Splenic flexure polyp. The specimen consists of two irregular fragments of light rowell soft tissue that in aggregate measure 0.8 x 0.3 x 0.1 cm. The specimen is totally submitted in one cassette. B. Received in fixative is one container labeled with the patient's name and designated Ascending colon polyp biopsy. The specimen consists of one irregular fragment of light rowell soft tissue that measures 0.3 x 0.2 x 0.1 cm. The specimen is totally submitted in one cassette. Alex 04/29/2023 TC:1 CPT: 24454v2 Patient Age/Sex Location Account Attending Physician SONY MONTALVO 67/M EN [id number] Carlito Guo, DO Signed (signature on file) Dr. Dano Valentino MD 04/30/23 1206 [facility] Comment on above: Performed By: #### P SUIV #### [facility] [address] [place], [address] Basophil percentageOrdered B y: Cadence Oropeza on 03-27-2023 Bilirubin [Mass/Vol] 0.70 mg/dL 0.20-1.00 [facility] Comment on above: For patients on eltr ombopag therapy, use of Dimension Coalgate TBIL is not recommended. Chloride [Moles/Vol] 107 mmol/L 98-107 [facility] Cholesterol [Mass/Vol] 147 mg/dL <200 [facility] Comment on above: <200 mg/dL Desirable 200-240 mg/dL Borderline >240 mg/dL High Risk Glucose [Mass/Vol] 114 mg/dL 74-106 [facility] Comment on above: Fasting Glucose resu lt from 100 to 125 mg/dL suggests IMPAIRED HOMEOSTASIS per A.D.A. criteria. Potassium [Moles/Vol] 4.3 mmol/L 3.5-5.1 [facility] Protein [Mass/Vol] 7.3 g/dL 6.4-8.2 [facility] Sodium [Moles/Vol] 138 mmol/L 136-145 [facility] Triglyceride [Mass/Vol] 64 mg/dL <199 [facility] Comment on above: The drugs N-Acetylcy steine and Metamizole may falsely depress this assay.Serum Triglycerides Reference Interval Normal <150 mg/dL Borderline high 150 - 199 mg/dL High 200 - 499 mg/dL Very High > or = 500 mg/dL Laboratory - Chemistry and C hemistry - challengeOrdered By: Cadence Oropeza on 03-27-2023 Albumin/Globulin [Mass ratio] 1.1 {ratio} 0.9-2.4 [facility] ALP [Catalytic activity/Vol] 79 U/L 45-117 [facility] ALT [Catalytic activity/Vol] 35 U/L 16-61 [facility] Cholesterol in HDL [Mass/Vol] 51 mg/dL >40 [facility] Comment on above: The drugs N-Acetylcy steine and Metamizole may falsely depress this assay. Reference Range HDL <40 mg/dL Low HDL Cholesterol HDL >or= 60 mg/dL High HDL Cholesterol Cholesterol in LDL [Mass/Vol] 83 mg/dL 0-130 [facility] CO2 [Moles/Vol] 25.0 mmol/L 21.0-32.0 [facility] Globulin (S) [Mass/Vol] 3.4 g/dL 2.2-4.2 [facility] Urea nitrogen/Creatinine [Mass ratio] 19.7 mg/mg 10-20 [facility] No Panel InformationOrdered By: Cadence Oropeza on 03-27-2023 Estimated GFR (MDRD) Amer 113 mL/min >60 [facility] Comment on above: GFR Calc Estimated GFR (MDRD) Non-Af Amer 93 mL/min >60 [facility] Comment on above: Non- GFR Calc Urine Microalbumin/Creatinin e Ratio 8.6 mg/g CRE <30 [facility] VLDL Cholesterol 13 mg/dL 5-40 [facility] Serum or plasma calcium chaim urement (mass/volume)Ordered By: Cadence Oropeza on 03-27-2023 Calcium [Mass/Vol] 9.3 mg/dL 8.5-10.1 [facility] Serum or plasma creatinine m easurement (mass/volume)Ordered By: Cadence Oropeza on 03-27-2023 Creatinine [Mass/Vol] 0.86 mg/dL 0.70-1.30 [facility] Comment on above: The validity of the calculated GFR & GFRAA in patients over 70 years has not been determined. Clinical correlation is essential. Serum or plasma urea nitroge n measurement (mass/volume)Ordered By: Cadence Oropeza on 03-27-2023 Urea nitrogen [Mass/Vol] 17 mg/dL 7-18 [facility] Thin prep Papanicolaou smear with manual screeningOrdered By: Cadence Oropeza on 03-27-2023 Thin prep Papanicolaou smear with manual screening 3.9 g/dL 3.2-5.0 [facility] Thin prep Papanicolaou smear with manual screening 29 U/L 15-37 [facility] Thin prep Papanicolaou smear with manual screening 6 5-15 [facility] Thin prep Papanicolaou smear with manual screening 8.4 mg/L NO RANGE EST. [facility] Urine creatinine measurement (mass/volume)Ordered By: Cadence Oropeza on 03-27-2023 Creatinine (U) [Mass/Vol] 97.70 mg/dL NO RANGE EST. [facility] Absolute lymphocyte countOrd ered By: Cadence Oropeza on 04-04-2022 Lymphocytes Auto (Unsp spec) [#/Vol] 1.73 10*3/uL 0.83-4.51 [facility] Basophil percentageOrdered B y: Cadence Oropeza on 04-04-2022 Basophils/100 WBC (Bld) 1.2 % 0-1 [facility] Bilirubin [Mass/Vol] 0.80 mg/dL 0.20-1.00 [facility] Comment on above: For patients on eltr ombopag therapy, use of Dimension Coalgate TBIL is not recommended. Chloride [Moles/Vol] 105 mmol/L 98-107 [facility] Cholesterol [Mass/Vol] 133 mg/dL <200 [facility] Comment on above: <200 mg/dL Desirable 200-240 mg/dL Borderline >240 mg/dL High Risk Eosinophils/100 WBC (Bld) 1.9 % 0-5 [facility] Glucose [Mass/Vol] 91 mg/dL 74-106 [facility] Neutrophils (Bld) [#/Vol] 4.4 10*3/uL 2.0-7.7 [facility] Neutrophils/100 WBC (Bld) 59.6 % 47-70 [facility] Potassium [Moles/Vol] 4.1 mmol/L 3.5-5.1 [facility] Protein [Mass/Vol] 7.2 g/dL 6.4-8.2 [facility] Sodium [Moles/Vol] 138 mmol/L 136-145 [facility] Triglyceride [Mass/Vol] 99 mg/dL <199 [facility] Comment on above: The drugs N-Acetylcy steine and Metamizole may falsely depress this assay.Serum Triglycerides Reference Interval Normal <150 mg/dL Borderline high 150 - 199 mg/dL High 200 - 499 mg/dL Very High > or = 500 mg/dL WBC (Bld) [#/Vol] 7.3 10*3/uL 4.4-11.0 [facility] Blood erythrocytes count (nu mber/volume)Ordered By: Cadence Oropeza on 04-04-2022 RBC (Bld) [#/Vol] 5.17 10*6/uL 4.6-6.2 [facility] Blood hemoglobin measurement (mass/volume)Ordered By: Cadence Oropeza on 04-04-2022 Hemoglobin (Bld) [Mass/Vol] 15.5 g/dL 13.0-16.5 [facility] Blood lymphocytes/100 leukoc ytesOrdered By: Cadence Oropeza on 04-04-2022 Lymphocytes/100 WBC (Bld) 23.7 % 19-41 [facility] Blood monocytes/100 leukocyt esOrdered By: Cadence Oropeza on 04-04-2022 Monocytes/100 WBC (Bld) 13.1 % 0-10 [facility] Blood platelet mean volumeOr dered By: Cadence Oropeza on 04-04-2022 Platelet mean volume (Bld) [Entitic vol] 10.1 fL 6.2-12.0 [facility] Determination of erythrocyte mean corpuscular volume (MCV)Ordered By: Cadence Oropeza on 04-04-2022 MCV (RBC) [Entitic vol] 88.0 fL 80-94 [facility] Hematocrit Auto (Bld) [Volum e fraction]Ordered By: Cadence Oropeza on 04-04-2022 Hematocrit (Bld) [Volume fraction] 45.5 % 40-54 [facility] - Chemistry and C hemistry - challengeOrdered By: Cadence Oropeza on 04-04-2022 ALP [Catalytic activity/Vol] 77 U/L 45-117 [facility] ALT [Catalytic activity/Vol] 25 U/L 16-61 [facility] CO2 [Moles/Vol] 26.0 mmol/L 21.0-32.0 [facility] Globulin (S) [Mass/Vol] 3.5 g/dL 2.2-4.2 [facility] Urea nitrogen/Creatinine [Mass ratio] 21.4 mg/mg 10-20 [facility] - Hematology and Cell countsOrdered By: Cadence Oropeza on 04-04-2022 Erythrocyte distribution width (RBC) [Entitic vol] 39.7 fL 35.1-43.9 [facility] Erythrocyte distribution width (RBC) [Ratio] 12.2 % 11.6-14.6 [facility] Immature granulocytes/100 WBC (Bld) 0.500 % 0.0-0.9 [facility] Comment on above: IG% - Immature Granu locytes (promyelocytes, myelocytes and metamyelocytes) > 1% indicates that a LEFT SHIFT is Present. MCH (RBC) [Entitic mass] 30.0 pg 27.0-32.0 [facility] Nucleated RBC/100 WBC (Bld) [Ratio] 0 % 0-5 [facility] MCHC Auto (RBC) [Mass/Vol]Or dered By: Cadence Oropeza on 04-04-2022 MCHC (RBC) [Mass/Vol] 34.1 g/dL 32-36 [facility] No Panel InformationOrdered By: Cadence Oropeza on 04-04-2022 Estimated GFR (MDRD) Amer 117 mL/min >60 [facility] Comment on above: GFR Calc Estimated GFR (MDRD) Non-Af Amer 96 mL/min >60 [facility] Comment on above: Non- GFR Calc Prostate Specific Antigen Screen 0.60 ng/mL 0.00-4.00 [facility] Comment on above: This test was perfor med using the TPSA assay method for the[employer] chemistry system. Values obtained with differentassay methods cannot be used interchangably.When changing PSA assays in the course of monitoring apatient, additional sequential testing should be carriedout to confirm baseline values. Platelets bldOrdered By: John Oropeza on 04-04-2022 Platelets (Bld) [#/Vol] 246 10*3/uL 150-450 [facility] Serum or plasma albumin chaim urement (mass/volume)Ordered By: Cadence Oropeza on 04-04-2022 Albumin [Mass/Vol] 3.7 g/dL 3.2-5.0 [facility] Serum or plasma albumin/glob ulin mass ratioOrdered By: Cadence Oropeza on 04-04-2022 Albumin/Globulin [Mass ratio] 1.1 {ratio} 0.9-2.4 [facility] Serum or plasma calcium chaim urement (mass/volume)Ordered By: Cadence Oropeza on 04-04-2022 Calcium [Mass/Vol] 9.1 mg/dL 8.5-10.1 [facility] Serum or plasma cholesterol in HDL measurement (mass/volume)Ordered By: Cadence Oropeza on 04-04-2022 Cholesterol in HDL [Mass/Vol] 43 mg/dL >40 [facility] Comment on above: The drugs N-Acetylcy steine and Metamizole may falsely depress this assay. Reference Range HDL <40 mg/dL Low HDL Cholesterol HDL >or= 60 mg/dL High HDL Cholesterol Serum or plasma cholesterol in VLDL measurement (mass/volume)Ordered By: Cadence Oropeza on 04-04-2022 Cholesterol in VLDL [Mass/Vol] 20 mg/dL 5-40 [facility] Serum or plasma creatinine m easurement (mass/volume)Ordered By: Cadence Oropeza on 04-04-2022 Creatinine [Mass/Vol] 0.84 mg/dL 0.70-1.30 [facility] Comment on above: The validity of the calculated GFR & GFRAA in patients over 70 years has not been determined. Clinical correlation is essential. Serum or plasma low density lipoprotein (LDL) cholesterol measurement (mass/volume)Ordered By: Cadence Oropeza on 04-04-2022 Cholesterol in LDL [Mass/Vol] 70 mg/dL 0-130 [facility] Serum or plasma urea nitroge n measurement (mass/volume)Ordered By: Cadence Oropeza on 04-04-2022 Urea nitrogen [Mass/Vol] 18 mg/dL 7-18 [facility] Thin prep Papanicolaou smear with manual screeningOrdered By: Cadence Oropeza on 04-04-2022 Thin prep Papanicolaou smear with manual screening 23 U/L 15-37 [facility] Thin prep Papanicolaou smear with manual screening 7 5-15 [facility] Thin prep Papanicolaou smear with manual screening 12.6 mg/L NO RANGE EST. [facility] CNOVon 01-16-2021 CNOV Office Visit (GENSWS ) SONY VICENTE ([id number]) 1955 [employer] [employer] Date Time Provider Department 01/16/21 2:30 PM MISSY WORTHY During your visit today, we recorded the following information about you: Temperature Pulse Blood pressure Weight 98.4 degrees 104/minute 150/81 96.6 kg Height 1.854 m Missy Worthy PA-C 01/17/2021 12:11 PM Signed FOLLOW UP VISIT - HERNIA NAME: Sony Koroma CLINIC NO.: [id number] DATE OF SERVICE: 01/16/2021 : 1955 REFERRING PHYSICIAN: Christi oMralez MD Sony is a patient I am following for [...] ?C (98.4 ?F), height 185.4 cm (6' 1), weight 96.6 kg (213 lb), SpO2 96 [...] all above and agreed with the plan. ____ JEAN PAUL Ruth PA-C 01/16/2021 2:46 PM Addendum -Follow up in 1 month to discuss screening colonoscopy The following instructions are important for you related to your office visit today with the [facility] General Surgeons. INSTRUCTIONS FOLLOWING YOUR RECENT HERNIA SURGERY You should be returning to your regular diet, If you have having persistent issues with tolerating your diet, please contact our office It is not unusual to have incisional pain for the first 1-2 weeks following surgery. If this persists beyond 2 weeks, contact the office You should leave the Steri-Strips in place until they fall off. You may return to your regular activities. You may drive if you are no longer taking narcotic pain medication. Climbing stairs is fine. Walking in encouraged. Sitting up from bed may be uncomfortable. Sitting up using your lateral abdominal muscles (sitting up sideways) is usually more comfortable. You should perform no lifting greater than 20lbs for the next 6-7 weeks. Usually 8 weeks total from the date of surgery. It is not unusual to have loose stools following surgery. This is usually self limited and related to the antibiotics that were given during your surgical procedure. Fiber supplementation and yogurt with active cultures may help you return to regular bowel activity. If you note loose stools persisting for over 2 weeks, or significant cramping or loose bloody stools, contact the office immediately. Contact the office immediately if any of your incisions become increasingly tender, red or have drainage. Again, if you have any difficulties or concerns, contact our office immediately. If you note any additional difficulties, questions, or concerns, you should contact our office immediately @ [phone] and ask to be transferred to the General Surgery department. Referring Provider: CHRISTI MORALEZ [[id number]] Allergies As of Date: 01/16/2021 (No Known Allergies) Date Reviewed: 01/16/2021 Reviewed by: Missy Worthy PA-C - Fully Assessed Reason for Visit: Post Op [174] Cmt: Left Inguinal Hernia repair Primary Visit Diagnosis:S/P hernia repair [Z98.890, Z87.19] Prescriptions as of 01/17/2021 - triamcinolone acetonide (NASACORT AQ NASAL) Use in the nose. - losartan (COZAAR) 50 mg tablet Take 50 mg by mouth once daily. - D3-red kbgj-plrknpalees-eonz (SUPER-D3+) 5,000-200 unit-mg cap Take by mouth once daily. - HYDROCHLOROTHIAZIDE 12.5 MG CAP Take 25 mg by mouth. - VITAMIN C 500 MG TAB Take one(1) tablet daily. Problem List As Of Date 01/16/2021 Noted Resolved Left inguinal hernia [K40.90] 01/09/2021 01/09/2021 Other instructions from your clinician: -Follow up in 1 month to discuss screening colonoscopy The following instructions are important for you related to your office visit today with the [facility] Surgeons. INSTRUCTIONS FOLLOWING (more content not included)... Normal [facility] ANES POSTPROC EVALon 021 ANES POSTPROC EVAL HNO ID: [id number] Author: Jhoan Dior MD Service: Anesthesiology Author Type: Anesthesiologist Type: Anesthesia Postprocedure Evaluation Filed: 01/09/2021 10:55 AM Note Text: POST ANESTHESIA EVALUATION NOTE : 1955 Procedure Summary Date: 01/09/21 Room / Location: [facility] OR06 / [place] OR Anesthesia Start: 729 Anesthesia Stop: 851 Procedure: LAPAROSCOPIC HERNIORRHAPHY, INGUINAL INITIAL (Left Abdomen) Diagnosis: Left inguinal hernia Surgeons: Fredy Cuello MD Responsible Provider: Jhoan Dior MD Anesthesia Type: general ASA Status: 2 Anesthesia Type: general Last vitals Vitals Value Taken Time BP 121/78 01/09/21 0930 Temp 36.6 ?C (97.9 ?F) 01/09/21 0845 Pulse 76 01/09/21 0939 Resp 19 01/09/21 0939 SpO2 89 % 01/09/21 09 Vitals shown include unvalidated device data. Post Anesthesia Patient Status Patient Evaluation: bedside. Anticipated Disposition: phase 2 then home. Neurological Status: aware and responsive. Pulmonary Status: breathing comfortably on room air Airway Control: returned to baseline unsupported. Cardiovascular Status: stable. Pain Management: clinically adequate Postoperative Hydration: acceptable. Intraoperative Events: no significant anesthesia events Post Operative Nausea/Vomiting Status: no significant post operative nausea or vomiting Anesthetic Observations: Recommendation: continue current plan of care. Anesthesia Observations No Documentation SIGNATURE: Jhoan Dior MD PATIENT NAME: Sony Koroma DATE: January 09, 2021 TIME: 10:55 AM CSN: [id number] [facility] ANES PRE-OPon 01-09-2021 ANES PRE-OP HNO ID: [id number] Author: Jhoan Dior MD Service: Anesthesiology Author Type: Anesthesiologist Type: Anesthesia Preprocedure Evaluation Filed: 01/09/2021 7:03 AM Note Text: ANESTHESIOLOGY DAY OF SURGERY NOTE : 1955 Procedure(s) (LRB): LAPAROSCOPIC HERNIORRHAPHY, INGUINAL INITIAL (Left) Surgeon(s): Fredy Cuello MD Estimated body mass index is 28.23 kg/m? as calculated from the following: Height as of this encounter: 185.4 cm (6' 1). Weight as of this encounter: 97.1 kg (214 lb). Most recent hematocrit and potassium results: No results found for this basename: HCT,HEMATOCRIT,K,POTASS IUM Relevant Problems No relevant active problems I - PHYSICAL EVALUATION AIRWAY Patient intubated: No. Tracheostomy tube not present Mallampati: I. TM distance: >3 FB. Neck ROM: full ROM without neurological symptoms. Mouth opening: adequate. Short neck: no. Thick neck: no DENTAL Dental findings: teeth intact and missing tooth/teeth. Dentures, upper: complete. Additional exam findings: no II - ANESTHESIA PLAN ASA Score: 2 Anesthetic Plan: general Airway type: ETT The patient is not a current smoker. NPO Status: adequate Monitoring plan: standard ASA. Postoperative analgesic plan: parenteral or oral opioids. Anesthetic Risks, Benefits, Alternatives, Personnel Discussed. Consent obtained from: patient.Patient / Surrogate agrees to blood products: blood products not planned DNR status not reviewed with patient and/or family prior to surgery. Significant changes in the patient condition since the History and Physical, not otherwise documented in primary service progress note: no. Potential Anesthesia issues that may suggest increased risk of complications or contraindication to planned procedure: none. Vitals Value Taken Time BP 156/88 01/09/21 0633 Pulse Resp 16 01/09/21 0633 Temp 36.8 ?C (98.2 ?F) 01/09/21 0633 SpO2 95 % 01/09/21 0633 Facility-Administered Medications as of 01/09/2021 Medication Dose Route Frequency - lactated ringers iv infusion 5-30 mL/hr INTRAVENOUS CONTINUOUS - ceFAZolin iv piggyback 2 g in D5W (iso-osmotic) 100 mL (ANCEF) 2 g INTRAVENOUS Pre-Op Once Outpatient Medications as of 01/09/2021 Medication Sig - losartan (COZAAR) 50 mg tablet Take 50 mg by mouth once daily. - HYDROCHLOROTHIAZIDE 12.5 MG CAP Take 25 mg by mouth. - VITAMIN C 500 MG TAB Take one(1) tablet daily. - loratadine(CLARITIN 10 MG TAB) Take one(1) tablet daily as needed for allergy symptoms. (Patient not taking: ) - VITAMIN E 400 UNIT CAP Take one(1) tablet daily. (Patient not taking: Swallow whole. DO NOT crush or break. ) I have interviewed and examined the patient. I have reviewed the medical record and/or the pre-anesthesia evaluation, pertinent labs, and test results. This contains updated information obtained within 48 hours of Surgery/Procedure. SIGNATURE: Jhoan Dior MD PATIENT NAME: Sony Koroma DATE: January 09, 2021 TIME: 7:02 AM CSN: [id number] [facility] HISTORY PHYSICALon HISTORY PHYSICAL HNO ID: [id number] Author: Fredy Cuello MD Service: General Surgery Author Type: Physician Type: HANDP Filed: 01/09/2021 7:07 AM Note Text: UPDATED HISTORY AND PHYSICAL EXAMINATION SERVICE DATE: 01/09/2021 SERVICE TIME: 7:07 AM PHYSICAL EXAM MUST BE COMPLETED ON ADMISSION The History and Physical (completed in the past 30 days) has been reviewed and the patient has been examined. The contents accurately reflect the patient's condition with the following additions or revisions since the HANDP was completed. Examination indicates no changes. This HANDP can be found in the Electronic Medical Record dated 12/24/20. SIGNATURE: Fredy Cuello III, MD PATIENT NAME: Sony Koroma DATE: January 09, 2021 TIME: 7:07 AM [facility] OPERATIVE NOon 01-09-2021 OPERATIVE NO HNO ID: [id number] Author: Fredy Cuello MD Service: General Surgery Author Type: Physician Type: Operative Report Filed: 01/09/2021 8:38 AM Note Text: OPERATIVE/PROCEDURE REPORT LOG ID: [id number] SURGERY/PROCEDURE DATE: 01/09/2021 INCISION/PROCEDURE START TIME: 7:58 AM INCISION CLOSE/PROCEDURE END TIME: 8:37 PM SURGEON(S)/PROCEDURALIS T(S) AND STEAM AND GAS TURBINE ASSEMBLER(S): Surgeon(s) and Role: * Fredy Cuello MD - Primary Nurse Practitioner: Jillian Reyes APRN.CNP; Nikunj Goncalves APRN.CNP SURGERY/PROCEDURE(S): Laparoscopic left inguinal hernia repair with mesh ANESTHESIA: General SURGERY/PROCEDURE DETAILS: Patient was brought into the operating room. Placed in the supine position. Under excellent general anesthetic Meraz catheter was placed abdomen was sterilely prepped and draped in the usual fashion. Local was injected supraumbilically. Dissection was carried down to the fascia. The fascia was grasped with a [place]. Varies needle was placed inside the abdomen. The abdomen was insufflated to 15 torr. A 10/12 trocar was placed without difficulty. It was flank by 2 #5 trochars both placed under direct visualization without injury to underlying structures. Patient was placed in the headdown and rotated to the left position. I scored the peritoneum. I dissected down to the pubic tubercle and then dissected laterally identifying Jaquan's ligament dissecting the cord and vessel structures and an indirect hernia was brought back down into the operating field. I dissected further laterally. Once this was all completed I placed a 10 x 15 progrip mesh into the wound. It laid completely flat it looked quite nice. I reperitonealized the area with an absorbable tacker covering the mesh completely. Ilioinguinal nerve block was then performed. I inspected the right side it was stable and no signs of hernia were identified. Previous mesh was identified. Trochars were removed under direct visualization good in the stasis was noted. Fascia the umbilical port was closed with a iwzxyu-[id number] stitch of 0 Vicryl. Skin incisions were closed with subcuticular stitches of 4-0 Monocryl. A couple deep dermal stitches of 3-0 Vicryl were used in the umbilical port. Steri-Strips were applied sterile dressings were applied Meraz catheter was removed the patient tolerated the procedure well. Nikunj Goncalves was my payroll administrative assistant. She assisted with retraction, visualization and performed skin closure. No additional surgeons or qualified residents were available. PRE-OP/PRE-PROCEDURE DIAGNOSIS: Left inguinal hernia POST-OP/POST-PROCEDURE DIAGNOSIS: Same as Preop ESTIMATED BLOOD LOSS: < 25 mls SPECIMENS: None IMPLANTABLE DEVICES: 10 x 15 ProGrip mesh DRAINS: None COMPLICATIONS: None PARTICIPATION IN SURGERY/PROCEDURE: I/primary surgeon/proceduralist performed the procedure with assistance. SIGNATURE: Fredy Cuello III, MD PATIENT NAME: Sony Torresn DATE: January 09, 2021 TIME: 8:34 AM Normal [facility] 01-04-2021 [facility] Telephone (PREANME) Pamela KOROMASONY ([id number]) 1955 [place] [employer] Date Time Provider Department 01/04/21 [facility] PROVIDER PREANME During your visit today, we recorded the following information about you: Rosita Rendon RN 01/07/2021 8:04 AM Addendum Patient has been identified by name and date of : Yes PATIENT PREOPERATIVE INSTRUCTIONS Dr. Cuello has scheduled you for your procedure on 01/09/21 at this surgery center: [facility]: [phone] -- [address] [id number]. Please read below carefully for your personalized instructions. Blood Thinning Medications: - Stop NSAIDS (Ibuprofen, Advil, Aleve, Motrin, Celebrex, Mobic, etc.) 7 days before surgery, as directed by your surgeon. - Stop Vitamin E, ALL multi-vitamins (Super D 3), herbals and dietary supplements 7 days before surgery. - You may take Tylenol (Acetaminophen) or any of your pain medications that do not contain aspirin or NSAIDS as needed. Dietary Restrictions: - No solid food after midnight the night before your surgery. - You may have 12 ounces of clear liquids (water, clear juices such as apple juice or gatorade, carbonated beverages, clear tea, black coffee-only) until 2 hours before scheduled arrival at facility. - Do not drink any alcohol after midnight the night before your surgery. Medications: Approved medications to take the morning of surgery with a sip of water: None If you start any new medications after today's visit, please contact the surgery center above. Important Reminders: - Bring photo ID and insurance card. - Candy, mints, gum and tobacco products are NOT permitted the morning of surgery. - Hearing aids, dentures and glasses may be worn the morning of surgery. - NO jewelry, body piercings, makeup, nail frisian, hairpins or contacts are to be worn the day of surgery. If you develop symptoms such as a fever, cold, or flu, or have other changes to your health within TWO DAYS of scheduled surgery or the morning of surgery, please contact the surgery center above. Personal Belongings: - Leave ALL valuables and money at home or with family members. Please be aware that emergency situations arise, which may delay or change your surgical time. If this happens, we will notify you as soon as possible and regret any inconvenience. If you already have an Advance Directive, please fax a copy to [phone] or email to [email or web address] for it to be added to your chart. If you do not have an Advance Directive, you can find the appropriate form and more information at [email or web address]. We recommend that you complete the Advance Directive form found on the website and bring it with you the day of your surgery. It can be witnessed and scanned into your chart that day. For Outpatient Procedures: - YOU MUST HAVE A RESPONSIBLE KILN REMOVER TAKE YOU HOME. A ZOOKEEPER OR PRIVACY ANALYST OR UBER OR LYFT CANNOT BE MADE A RESPONSIBLE KILN REMOVER. - We recommend that a responsible person stays with you overnight to take care of you. - You cannot stay in a hotel alone after outpatient surgery. You will not be permitted to have your surgery, if you do not have someone to take care of you. Arrival Time for Surgery: - The Surgery Center or hospital where you are having surgery will call the afternoon before surgery (or Thursday for Thursday surgery) with a scheduled arrival time. - If you have not heard by 4 pm, please contact the surgery center above. Please be aware that emergency situations arise, which may delay or change your surgical time. If this happens, we will notify you as soon as possible and regret any inconvenience. Rosita Rendon RN Allergies As of Date: 01/04/2021 (No Known Allergies) Date Reviewed: 12/24/2020 Reviewed by: Fredy Cuello MD - Fully Assessed Reason for Visit: Preparations For Surgery [898] Prescriptions as of 01/07/2021 - triamcinolone acetonide (NASACORT AQ NASAL) Use in the nose. - losartan (COZAAR) 50 mg tablet Take 50 mg by mouth once daily. - D3-red omoq-cploavxgjof-ookl (SUPER-D3+) 5,000-200 unit-mg cap Take by mouth once daily. - loratadine(CLARITIN 10 MG TAB) Take one(1) tablet daily as needed for allergy symptoms. - HYDROCHLOROTHIAZIDE 12.5 MG CAP Take 25 mg by mouth. - VITAMIN C 500 MG TAB Take one(1) tablet daily. - VITAMIN E 400 UNIT CAP Take one(1) tablet daily. Problem List As Of Date: 01/04/2021 (None) Encounter Status:Closed by ALEXANDRO RENDON on 01/07/21 [facility] CNCOon 12-24-2020 CNCO Letter Text Normal [facility] CNOVon 12-24-2020 CNOV Office Visit (GENSWS ) SONY VICENTE ([id number]) 1955 M Date Time Provider Department 12/24/20 2:00 PM FREYD CUELLO During your visit today, we recorded the following information about you: Temperature Pulse Blood pressure Weight 98.4 degrees 94/minute 160/80 97.1 kg Madison Vaca RN 12/24/2020 2:11 PM Signed [...] Mammogram screening? N/A Last Colonoscopy: 2008 Madison Cuello III, MD 12/24/2020 2:27 PM Signed HISTORY AND PHYSICAL Sony Koroma 1955 REFERRING PHYSICIAN: Christi Moralez MD CHIEF COMPLAINT: Consult HPI: Sony is a 65 year old male with [...] who felt the patient has a hernia. Sony was referred for evaluation and treatment. The patient is being seen by me today at the request of Dr. Christi Moralez MD for my opinion and advice regarding Left inguinal hernia (primary encounter diagnosis). PAST MEDICAL HISTORY Diagnosis Date - Diverticulosis of colon (without mention of hemorrhage) - Unspecified essential hypertension Essential hypertension PAST SURGICAL HISTORY Procedure Laterality Date - COLONOSCOP W/ OR W/O [facility] SPEC 08/18/08 - LAP REPAIR INTIAL INGUINAL HERNIA 05-29-06 right inguinal - REMOVE TONSILS/ADENOIDS,<12 Y/O T/A (under age 12 years) Current Outpatient Medications Medication Sig - triamcinolone acetonide (NASACORT AQ NASAL) Use in the nose. - losartan (COZAAR) 50 mg tablet Take 50 mg by mouth once daily. - D3-red mhqa-eldocydycoa-xboi (SUPER-D3+) 5,000-200 unit-mg cap Take by mouth [...] liver cancer - Liver Cancer Mother - (more content not included)... Normal [facility] Vital Signs Date Time Vital Sign Value Performing Clinician Faci lity 03-20-2024 11:50-0400 Body temperature 97.5 [degF] DO Cadence Sandip Work Phone: [facility] 04-29-2023 11:50-0400 Diastolic blood pressure 72 mm[Hg] DO Cadence Sandip Work Phone: [facility] 04-29-2023 11:50-0400 Heart rate 65 /min DO Cadence Sandip Work Phone: [facility] 04-29-2023 11:50-0400 Respiratory rate 14 /min DO Cadence Sandip Work Phone: [facility] 04-29-2023 11:50-0400 SaO2% (BldA) [Mass fraction] 95 % DO Cadence Sandip Work Phone: [facility] 04-29-2023 11:50-0400 Systolic blood pressure 96 mm[Hg] DO Cadence Sandip Work Phone: [facility] 04-29-2023 10:23-0400 Body height 182.88 cm DO Cadence Sandip Work Phone: [facility] 04-29-2023 10:23-0400 Body mass index (BMI) [Ratio] 26.3 kg/m2 DO Cadence Sandip Work Phone: [facility] 04-29-2023 10:23-0400 Body weight 88 kg DO Cadence Sandip Work Phone: [facility] 03-20-2023 11:44-0500 Body height 182.88 cm DO Cadence Sandip Work Phone: [facility] 03-20-2023 11:44-0500 Body mass index (BMI) [Ratio] 27.3 kg/m2 DO Cadence Sandip Work Phone: [facility] 03-20-2023 11:44-0500 Body weight 91.62 kg DO Cadence Sandip Work Phone: [facility] Encounters Encounter Date Encounter Type Care Provider Facility Start: 03-29-2024 End: 03-29-2024 ambulatory Yvon Canoke Facility:[facility] Start: 04-29-2023 ambulatory Carlito Guo Facility :[facility] Start: 04-29-2023 Non-patient / Non-visit DO John watsontim Sandip Work Phone: [facility] Start: 04-29-2023 End: 04-29-2023 Admission to same day surgery center DO Cadenceelvie Charlesnger Work Phone: [facility] Work Phone: Start: 04-29-2023 End: 04-29-2023 ambulatory DO Cadence Cisse Sandip Work Phone: [facility] Work Phone: Start: 03-27-2023 End: 03-27-2023 ambulatory DO Cadence Cisse Sandip Work Phone: [facility] Work Phone: Start: 03-27-2023 End: 03-27-2023 Patient encounter procedure DO Cadenceelvie Charlesnger Work Phone: [facility] Work Phone: Start: 03-20-2023 Non-patient / Non-visit DO John watsontim Sandip Work Phone: [facility] Work Phone: Start: 04-04-2022 End: 04-04-2022 ambulatory [facility] Work Phone: Start: 04-04-2022 End: 04-04-2022 Patient encounter procedure [facility] Family Procedures Date Procedure Procedure Detail Performing Clinician Start: 04-29-2023 Colonoscopy DO Cadence Charlesnger Work Phone: Plan of Treatment Date Care Activity Detail Author Start: 04-29-2023 Patient discharge [facility] Colonoscopy [facility] Patient referral [facility] Work Phone: Payers Date Payer Category Payer Self-pay [id number] 2023 Medicare [id number] Medicare [id number] Private Health Insurance [employer] [id number] Unknown ANTHSHIREEN [id number] Unknown [id number] Unknown [id number] Unknown [id number] Social History Date Type Detail Facility Tobacco smoking stat us NHIS Unknown if ever smoked [facility] Work Phone: Start: 1955 Sex Assigned At Male [facility] Start: 03-20-2023 End: 04-27-2023 Tobacco smoking status NHIS Unknown if ever smoked [facility] Goals Date Patient Goal Desired Activity /State Mental Status Date Assessment Result Facility 04-29-2023 Cognitive function Level Of Cons ciousness Appropriate;Sedated [facility] Work Phone: 04-29-2023 Cognitive function Voice/Name [facility] Work Phone: Procedure note 04-29-2023 Note Date & Type Note Facility 04-29-2023 Procedure note [facility] Procedure note 04-29-2023 Note Date & Type Note Facility 04-29-2023 Procedure note [facility] Clinical Note 04-29-2023 Note Date & Type Note Facility 04-29-2023 Note [facility] Medical Records Department [address] [place] [address] History Physical Exam 04/29/23 1101 MR#: [id number] Acct: [id number] Name: SONY MONTALVO Rep #: [id number] : 1955 67 From: Carlito Friend DO PCP: Dr. Yvon Baron MD Status:[facility] Location: [place] [address] HPI - General General Date of Admission: 04/29/23 Date of Service: 04/29/23 Chief Complaint: Screening colonoscopy HPI Narrative SONY MONTALVO, is a 67 M who presents today for screening colonoscopy. He had a colonoscopy approximately 11 years ago and that was normal except for some mild diverticular disease. He is not having any abdominal pain. He does not have any cramping. He does not have any chest pain shortness of breath. His only other past medical history is mild high blood pressure which is controlled with medicines. [facility] Medical History (Updated 04/27/23 @ 14:58 by Javon Reagan) Former smoker HTN (hypertension) Wears dentures Wears glasses Wears hearing aid Home Medications ascorbate calcium-bioflavonoid 1,000 mg-200 mg tablet (Emi-C with Bioflavonoids) 1 tab PO DAILY 03/20/23 [History Last Taken 04/28/23 06:30] cholecalciferol (vitamin D3) 125 mcg (5,000 unit) capsule 125 mcg PO DAILY 03/20/23 [History Last Taken 04/28/23 06:30] hydrochlorothiazide 25 mg tablet 25 mg PO DAILY 03/20/23 [History Last Taken 04/28/23 06:30] losartan 50 mg tablet 50 mg PO DAILY 03/20/23 [History Last Taken 04/29/23 07:00] sildenafil 50 mg tablet (Viagra) 50 mg PO DAILY PRN sexual activity 03/20/23 [History Last Taken Unknown] Allergy/AdvReac Type Severity Reaction Status Date / Time No Known Allergies Allergy Verified 04/29/23 10:21 Surgical History (Updated 04/27/23 @ 14:58 by Javon Reagan) H/O hernia repair Hx of colonoscopy Social History (Updated 03/20/23 @ 11:39 by Taty Velazquez) household members: spouse current occupational status: retired Smoking Status: Former smoker details: Occasional beer substance use type: does not use ROS Review of Systems ROS Unobtainable: other Constitutional Constitutional: Denies fatigue, fever(s), poor appetite, weight gain or weight loss ENT HEENT: Denies mouth lesions Cardiovascular Cardiovascular: Denies abdominal bloating, abdominal edema or abdominal pain Respiratory/Chest Respiratory/Chest: Denies change in mental status, change in phlegm color, chest congestion or chest tightness Gastrointestinal Gastrointestinal: Denies belching, bloating, change in bowel habits, change in stool character, chewing difficulty, coffee ground emesis, constipation, cramping, diarrhea, dyspepsia, dysphagia, early satiety, excessive flatus, fecal incontinence, heartburn, hematemesis, hematochezia, hemorrhoids, loose stools, melena, nausea, odynophagia, rectal bleeding, tenesmus, vomiting or weight changes Genitourinary Genitourinary: Denies abdominal discomfort, burning urination or itching Musculoskeletal Musculoskeletal: Reports as per HPI; Denies muscle weakness or myalgias Integumentary Integumentary: Denies jaundice Neurologic Neurologic: Denies lack of coordination or weakness Psychiatric Psychiatric: Denies confusion, depression, memory loss, mood swings, paranoia or suicidal ideation Endocrine Endocrinology: Denies systems reviewed and no addt'l complaints, except as documented Hematologic/Lymphatic Hematologic/Lymphatic: Denies anemia, easy bleeding, easy bruising or lymphadenopathy Allergic/Immunologic Allergic/Immunologic: Denies systems reviewed and no addt'l complaints, except as documented Vital Signs Vital Signs Vital Signs: 04/29/23 10:23 04/29/23 10:23 Temperature 98.4 F Temperature Source Temporal Pulse Rate 68 Respiratory Rate 16 Respiratory Pattern Normal Blood Pressure 131/75 H Blood Pressure Mean 93 Blood Pressure Source Monitor Blood Pressure Position Sitting Blood Pressure Location Right Arm Pulse Ox 98 Oxygen Delivery Method Room Air Weight Weight: 194 lb 0.108 oz Body Mass Index (BMI) 26.3 Physical Exam Const alert General Appearance: cooperative Orientation / Consciousness: oriented to person HEENT hearing grossly normal bilaterally Head and Scalp: normal to inspection Face and Sinus: face symmetric Nose: external nose normal Mouth: oral and palatal mucosa normal Eyes conjunctivae normal General Eye: normal appearance of both eyes Neck full ROM General: normal visual inspection Lymph Lymphatic: no lymphadenopathy noted Chest inspection of chest normal and palpation of chest normal Chest: symmetrical chest wall rise Resp normal respiratory effort Effort and Inspection: able to speak in complete sentences Cardio regular rate GI non-distended Percussion: normal to percussion Rectal Exam: de (more content not included)... [facility] Progress note 01-16-2021 Note Date & Type Note Facility 01-16-2021 Note HNO ID: [id number] Author: Missy Worthy PA-C Service: ? Author Type: Physician Staff Mine Warfare Officer Type: Progress Notes Filed: 01/17/2021 12:11 PM Note Text: FOLLOW UP VISIT - HERNIA NAME: Sony Koroma CLINIC NO.: [id number] DATE OF SERVICE: 01/16/2021 : 1955 REFERRING PHYSICIAN: Christi Moralez MD Sony is a patient I am following for [...] ?C (98.4 ?F), height 185.4 cm (6' 1), weight 96.6 kg (213 lb), SpO2 96 [...] all above and agreed with the plan. Missy Worthy PA-C [facility] Clinical Note 01-09-2021 Note Date & Type Note Facility 01-09-2021 Note HNO ID: [id number] Author: Nikunj Jacobsen APRN.CRNA Service: Anesthesiology Author Type: Nurse Aluminum Molder Type: Anesthesia Procedure Notes Filed: 01/09/2021 7:56 AM Note Text: ANESTHESIOLOGY PROCEDURE NOTE Airway General Information Procedure Start Time/Medication Administration: 01/09/2021 7:40 AM Procedure End Time: 01/09/2021 7:44 AM Patient location during procedure: OR Timeout Performed Pre-procedure: timeout performed Consent Obtained: Yes Patient identity confirmed: arm band, care warehouse team member and patient Staffing CUSTOMER SOLUTIONS SUPERVISOR: Nikunj Jacobsen APRN.DAVID Other anesthesia staff/rotator: Nikunj Jacobsen APRN.CUSTOMER SOLUTIONS SUPERVISOR Performed by: DAVID Indications and Patient Condition [...] no Airway not difficult SIGNATURE: Nikunj Jacobsen APRN.CUSTOMER SOLUTIONS SUPERVISOR PATIENT NAME: Sony Koroma DATE: January 09, 2021 TIME: 7:52 AM CSN: [id number] [facility] Progress note 12-24-2020 Note Date & Type Note Facility 12-24-2020 Note HNO ID: [id number] Author: Fredy Cuello MD Service: ? Author Type: Physician Type: Progress Notes Filed: 12/24/2020 2:27 PM Note Text: HISTORY AND PHYSICAL Sony Koroma 1955 REFERRING PHYSICIAN: Christi Moralez MD CHIEF COMPLAINT: Consult HPI: Sony is a 65 year old male with [...] who felt the patient has a hernia. Sony was referred for evaluation and treatment. The patient is being seen by me today at the request of Dr. Christi Moralez MD for my opinion and advice regarding Left inguinal hernia (primary encounter diagnosis). PAST MEDICAL HISTORY Diagnosis Date - Diverticulosis of colon (without mention of hemorrhage) - Unspecified essential hypertension Essential hypertension PAST SURGICAL HISTORY Procedure Laterality Date - COLONOSCOP W/ OR W/O [facility] SPEC 08/18/08 - LAP REPAIR INTIAL INGUINAL HERNIA 05-29-06 right inguinal - REMOVE TONSILS/ADENOIDS,<12 Y/O T/A (under age 12 years) Current Outpatient Medications Medication Sig - triamcinolone acetonide (NASACORT AQ NASAL) Use in the nose. - losartan (COZAAR) 50 mg tablet Take 50 mg by mouth once daily. - D3-red yylf-zkwjsitcexr-ozci (SUPER-D3+) 5,000-200 unit-mg cap Take by mouth [...] is oriented to (more content not included)... [facility] Evaluation note Note Date & Type Note Facility Evaluation note No assessment information availa ble [facility] Work Phone: Evaluation note Note Date & Type Note Facility Evaluation note Diagnosis Onset Date Encounter for screening for malignant neoplasm of colon acute [facility] Work Phone: History and physical note Note Date & Type Note Facility History and physical note Note Date/Time April 29, 2023 11:03am [facility] Medical Records Department [address] [place] [address] History & Physical Exam 04/29/23 1101 MR#: [id number] Acct: [id number] Name: SONY MONTALVO Rep #:[id number] : 1955 67 From: Carlito Friend DO PCP: Dr. Yvon Baron MD Status:[facility] Location: [place] [address] HPI - General General Date of Admission: 04/29/23 Date of Service: 04/29/23 Chief Complaint: Screening colonoscopy HPI Narrative SONY MONTALVO, is a 67 M who presents today for screening colonoscopy. He had a colonoscopy approximately 11 years ago and that was normal except for some mild diverticular disease. He is not having any abdominal pain. He does not have any cramping. He does not have any chest pain shortness of breath. His only other past medical history is mild high blood pressure which is controlled with medicines. [facility] Medical History (Updated 04/27/23 @ 14:58 by Javon Reagan) Former smoker HTN (hypertension) Wears dentures Wears glasses Wears hearing aid Home Medications ascorbate calcium-bioflavonoid 1,000 mg-200 mg tablet (Emi-C with Bioflavonoids) 1 tab PO DAILY 03/20/23 [History Last Taken 04/28/23 06:30] cholecalciferol (vitamin D3) 125 mcg (5,000 unit) capsule 125 mcg PO DAILY 03/20/23 [History Last Taken 04/28/23 06:30] hydrochlorothiazide 25 mg tablet 25 mg PO DAILY 03/20/23 [History Last Taken 04/28/23 06:30] losartan 50 mg tablet 50 mg PO DAILY 03/20/23 [History Last Taken 04/29/23 07:00] sildenafil 50 mg tablet (Viagra) 50 mg PO DAILY PRN sexual activity 03/20/23 [History Last Taken Unknown] Allergy/AdvReac Type Severity Reaction Status Date / Time No Known Allergies Allergy Verified 04/29/23 10:21 Surgical History (Updated 04/27/23 @ 14:58 by Javon Reagan) H/O hernia repair Hx of colonoscopy Social History (Updated 03/20/23 @ 11:39 by Taty Velazquez) household members: spouse current occupational status: retired Smoking Status: Former smoker details: Occasional beer substance use type: does not use ROS Review of Systems ROS Unobtainable: other Constitutional Constitutional: Denies fatigue, fever(s), poor appetite, weight gain or weight loss ENT HEENT: Denies mouth lesions Cardiovascular Cardiovascular: Denies abdominal bloating, abdominal edema or abdominal pain Respiratory/Chest Respiratory/Chest: Denies change in mental status, change in phlegm color, chestcongestion or chest tightness Gastrointestinal Gastrointestinal: Denies belching, bloating, change in bowel habits, change in stool character, chewing difficulty, coffee ground emesis, constipation, cramping, diarrhea, dyspepsia, dysphagia, early satiety, excessive flatus, fecalincontinence, heartburn, hematemesis, hematochezia, hemorrhoids, loose stools, melena, nausea, odynophagia, rectal bleeding, tenesmus, vomiting or weight changes Genitourinary Genitourinary: Denies abdominal discomfort, burning urination or itching Musculoskeletal Musculoskeletal: Reports as per HPI; Denies muscle weakness or myalgias Integumentary Integumentary: Denies jaundice Neurologic Neurologic: Denies lack of coordination or weakness Psychiatric Psychiatric: Denies confusion, depression, memory loss, mood swings, paranoia orsuicidal ideation Endocrine Endocrinology: Denies systems reviewed and no addt'l complaints, except as documented Hematologic/Lymphatic Hematologic/Lymphatic: Denies anemia, easy bleeding, easy bruising or lymphadenopathy Allergic/Immunologic Allergic/Immunologic: Denies systems reviewed and no addt'l complaints, except as documented Vital Signs Vital Signs Vital Signs: 04/29/23 10:23 04/29/23 10:23 Temperature 98.4 F Temperature Source Temporal Pulse Rate 68 Respiratory Rate 16 Respiratory Pattern Normal Blood Pressure 131/75 H Blood Pressure Mean 93 Blood Pressure Source Monitor Blood Pressure Position Sitting Blood Pressure Location Right Arm Pulse Ox 98 Oxygen Delivery Method Room Air Weight Weight: 194 lb 0.108 oz Body Mass Index (BMI) 26.3 Physical Exam Const alert General Appearance: cooperative Orientation / Consciousness: oriented to person HEENT hearing grossly normal bilaterally Head and Scalp: normal to inspection Face and Sinus: face symmetric Nose: external nose normal Mouth: oral and palatal mucosa normal Eyes conjunctivae normal General Eye: normal appearance of both eyes Neck full ROM General: normal visual inspection Lymph Lymphatic: no lymphadenopathy noted Chest inspection of chest normal and palpation of chest normal Chest: symmetrical chest wall rise Resp normal respiratory effort Effort and Inspection: able to speak in complete sentences Cardio regular rate GI non-distended Percussion: normal to percussion Rectal Exam: deferred Neuro Speech: speech normal Gait (Neuro): normal gait Assessment & Plan Assessment/Plan (1) Encounter for screening for malignant neoplasm of colon: PLAN: He was explained alternatives, risk, benefits including not withstanding bleeding, infection, sepsis, perforation, need for emergent surgery and . He will have an ASA of 2. 04/29/23 1103 <Electronically signed by aCrlito Guo DO> Cosigner Signature (if applicable): CC: Dr. Yvon Baron MD; Carlito Guo DO~ Signed [facility] Work Phone: Summary Purpose Family History No Family History Records FoundNo Family History Records FoundNo Family History Records Found Advance Directives No Advanced Directives Records Found Advance Directive Response Recorded Date/ Time Living Will No April 27, 2023 2:51pm Power of Paint Stock Clerk No April 26 2:51pm Chief Complaint and Reason for Visit Chief Complaint Amb Documentation EORDER Chief Complaint Amb Documentation EORDER Reason for Visit Encounter for screen ing for malignant neoplasm of colon Additional Source Comments (unrecognized sect ion and content) No Status Records FoundNo Status Records FoundNo Status Records Found INFORMATION SOURCE (unrecogn ized section and content) DATE CREATED AUTHOR 01/10/2021 [facility] DATE CREATED AUTHOR AUTHOR'S ORGANIZ ATION 03/18/2021 [facility] DATE CREATED AUTHOR AUTHOR'S ORGANIZ ATION 04/11/2024 [facility] Care Teams (unrecognized sec tion and content) Team Status: Active Member Role Status Dates Dr. Christi Moarlez MD Family Provider Active Cadence Oropeza DO Primary Care Provider Active Team Status: Inactive Member Role Status Dates Cadence Oropeza , DO Primary Care Provi subhash, Attending Provider, Referring Provider Active Team Status: Active Member Role Status Dates Cadence Oropeza , DO Primary Care Provider Active Taty Velazquez Attending Provider Active Team Status: Active Member Role Status Dates Dr. Christi Moralez MD Family Provider Active Yvon Baron MD Primary Care Provider Active Team Status: Active Member Role Status Dates Cadence Oropeza , Referring Provider Active Dr. Carlito Guo , DO Attending Provider, Other Prov ider Active Yvon Baron MD Primary Care Provider Active Team Status: Inactive Member Role Status Dates Cadecne Oropeza , Referring Provider Active Dr. Carlito Guo , DO Attending Provider Active Yvon Baron MD Primary Care Provider Active Goals (unrecognized section and content) Goals may be documented in a n alternate sectionGoals may be documented in an alternate section FOR RECORDS PERTAINING TO PATIENTS WHO ARE [...] BE BASED ON THE PRIMARY CLINICAL RECORDS. [employer] [facility]. provides no warranty or guarantee of the accuracy or completeness of information in this document.
--- NOTE | 2024-10-08 11:00 | ED.VIS.GI ---
HPI HPI - GI History of Present Illness Chief Complaint: Foreign Body Detail of Chief Complaint: Esophageal foreign body. Informant: patient and spouse/S.O. Abdominal Pain/Flank Pain Onset: Today Context: Sudden Onset and - (Niuean iraheta stuck in his lower esophagus since 7 AM.) Timing: Continuous Current Severity: Mild Maximum Severity: Mild Nausea/Vomiting/Emesis GI Symptom: Negative for Nausea or Vomiting Diarrhea/Melena/Hematochezia GI Symptom: Negative for Diarrhea, Melena or Hematochezia Associated Symptoms Associated Symptoms: Negative for Dysuria, Frequency or Hematuria Narrative Narrative: 69-year-old male with past medical history of hypertension. He has never had an upper endoscopy. States occasionally when he eats he gets food stuck but it always passes. This morning he was eating breakfast was eating candy and iraheta and a piece stuck. This was around 7 AM. It has not passed yet. He sitting drink water but after several minutes it will come back up. He is unable to swallow at this time no trouble breathing. Prior similar symptoms: Yes Recent Illness/Hospitalization: No PFSH PFSH Medical History Former smoker Wears dentures Wears hearing aid Wears glasses HTN (hypertension) Home Medications ?Medication ?Instructions ?Recorded ?Last Taken ?Type ascorbate calcium-bioflavonoid 1 tab PO DAILY 03/20/23 04/28/23 06:30 History 1,000 mg-200 mg tablet (Emi-C with Bioflavonoids) cholecalciferol (vitamin D3) 125 125 mcg PO DAILY 03/20/23 04/28/23 06:30 History mcg (5,000 unit) capsule hydrochlorothiazide 25 mg tablet 25 mg PO DAILY 03/20/23 04/28/23 06:30 History losartan 50 mg tablet 50 mg PO DAILY 03/20/23 04/29/23 07:00 History sildenafil 50 mg tablet (Viagra) 50 mg PO DAILY PRN sexual activity 03/20/23 Unknown History Allergy/AdvReac Type Severity Reaction Status Date / Time No Known Allergies Allergy Verified 10/08/24 10:15 Surgical History H/O hernia repair Hx of colonoscopy Social History household members: spouse current occupational status: retired Smoking Status: Former smoker details: Occasional beer substance use type: does not use ROS ROS ED ROS Narrative Denies recent illness. Constitutional Constitutional ED: Denies chills or fever(s) ENT ENT ED: Denies ear pain Cardiovascular Cardiovascular: Denies chest pain Respiratory/Chest Respiratory/Chest: Denies cough or dyspnea Gastrointestinal Gastrointestinal: Denies abdominal pain Genitourinary Genitourinary ED: Denies dysuria or hematuria Musculoskeletal Musculoskeletal: Denies arthralgias or back pain Integumentary Denies abscess or Abrasions Neurologic Neurologic: Denies headache(s) Psychiatric Psychiatric: Denies anxiety or depression Endocrine Endocrinology: Denies polydipsia Hematologic/Lymphatic Hematologic/Lymphatic: Denies easy bleeding Allergic/Immunologic Allergic/Immunologic ED: Denies mouth swelling, tongue swelling or urticaria EXAM Physical Exam Narrative Exam Narrative: 69-year-old male vital signs stable afebrile. Pulse ox 100% on room air. He is sitting upright in bed. in the room. He is in no distress. H EENT exam pupils round react light. Moist membranes. He is able to handle his own secretions. No stridor. No drooling. Neck nontender. Lungs clear to auscultation bilaterally. Heart regular rhythm rate about 90 no murmur. Chest wall ribs nontender. Abdomen soft nontender. Moving all 4 extremities. Nontender no edema. He is awake alert. No focal motor deficits. Benign exam. Const Vital Signs: 10/08/24 10:15 10/08/24 10:46 10/08/24 11:23 Temperature 98.1 F Temperature Source Temporal Pulse Rate 95 65 Respiratory Rate 16 16 Respiratory Effort Normal Blood Pressure 152/95 H 134/84 H Blood Pressure Mean 114 100 Pulse Ox 99 95 Oxygen Delivery Method Room Air Room Air Positive well nourished and well developed; Negative for cachectic, contractures or unkempt General Appearance ED: well developed and NAD; Negative for unkempt, cachectic, contractures or pallor Nutritional Appearance: Negative for cachectic HEENT Reports moist mucous membranes normocephalic and atraumatic Eyes PERRL and EOMs intact bilaterally Neck no lymphadenopathy, supple and no JVD Resp normal respiratory effort and clear to auscultation bilaterally Cardio regular rate, regular rhythm, S1 normal heart sound, S2 normal heart sound and no murmurs GI non-tender, non-distended and no masses Auscultation: normoactive bowel sounds Palpation: soft; Negative for tender, guarding or rebound tenderness present Back/Spine no CVA tenderness Extremity full ROM General Extremety ED: Negative for edema or tenderness General Extremity: Negative for edema Neuro CN's II-XII intact bilaterally and moves all extremities Sensorium / Orientation: alert, oriented to person, oriented to place and oriented to time Motor Exam: strength 5/5 throughout Psych mental status grossly normal and thought process normal Appearance: Negative for unkempt Skin no wounds General Skin Exam: Negative for jaundice or pallor Lesions: no lesions Rashes: no rashes MDM MDM MDM Narrative Medical decision making narrative: 69-year-old male esophageal foreign body. He has never been scoped. He has always had these pass. Will be giving glucagon if that does not work I will speak to GI for upper endoscopy. Repeat exam at noon patient is doing well. Patient was given a glass of water he can swallow and hold it down without any any difficulty. Appears a glucagon worked. He will be discharged home with outpatient follow-up with his patent clerk Dr. Guo. Discharge Plan Triage Chief Complaint: Foreign Body ED Provider: Wang Sandy Dx/Rx/DC Orders Clinical Impression: Esophageal foreign body Instructions: ED Esophageal Foreign Body, Resolved Prescriptions: No Action hydrochlorothiazide 25 mg tablet 25 mg PO DAILY losartan 50 mg tablet 50 mg PO DAILY sildenafil [Viagra] 50 mg tablet 50 mg PO DAILY PRN (Reason: sexual activity) Rx Instructions: administer 30 minutes to 4 hours before activity Emi-C with Bioflavonoids 1,000-200 mg tablet 1 tab PO DAILY cholecalciferol (vitamin D3) 125 mcg (5,000 unit) capsule 125 mcg PO DAILY Primary Care Provider: Yvon Baron Referrals: Yvon Baron MD [Primary Care Provider] - Carlito Guo DO [Med Staff - Active Staff] - As soon as possible Activity Restrictions/Additional Instructions: Make sure you cut up and chew your food thoroughly especially meats and breads. Call and follow-up with your GI doctor, Dr. Guo, for further evaluation and possible upper scope. Print Language: Moroccan Disposition Disposition: Home, Self Care
[2024-10-08] MEDS: Glucagon 1 MG/ML Syringe IV (11:08)
[2024-10-08 11:23] VITALS: BP 134/84; PULSE 65; RESP 16; O2SAT 95
[2024-10-08 12:08] VITALS: BP 142/75; PULSE 76; RESP 16; O2SAT 100
[2024-10-08 12:11] VITALS: BP 132/82; BP 133/83; PULSE 66; RESP 14; RESP 16; TEMP 36.5; TEMP 36.6; O2SAT 95; O2SAT 98
== END 2024-10-08 12:14 | disposition home or self-care (01) ==
PROVIDERS: Emergency Provider Emergency Medicine; PCP Family Medicine; Visit Provider Emergency Medicine
DX: T18.128A Food in esophagus causing other injury, initial encounter (principal); Z87.891 Personal history of nicotine dependence; W44.F3XA Food entering into or through a natural orifice, initial encounter; Z79.899 Other long term (current) drug therapy; I10 Essential (primary) hypertension
CPT/HCPCS: 99284; J1610

== ENCOUNTER 2024-11-15 05:47 | Day surgery (SDC) | payer MEDICARE, SELFPAY ==
[2024-11-15] VITALS (7 sets, daily range): BP systolic 98–129; BP diastolic 67–75; PULSE 71–74; RESP 16–18; TEMP 36.2–36.9; O2SAT 94–98; BMI 27.5
[2024-11-15] MEDS: Lactated Ringers 1,000 ML 15 ML IV (06:30)
--- NOTE | 2024-11-15 06:35 | HP.PCM_ITS ---
HPI - General General Date of Admission: 11/15/24 Date of Service: 11/15/24 Chief Complaint: dysphagia HPI Narrative SONY MONTALVO, is a 69 M who presents [SONY MONTALVO, is a 69 M who presents to the office today for ER follow up. Colonoscopy 04.29.23 Diverticulosis in the recto-sigmoid colon and in the sigmoid colon. One 8 mm polyp in the sigmoid colon, removed with a hot snare. Resected and retrieved. One 4 mm polyp in the ascending colon, removed with a jumbo cold forceps. Resected and retrieved. The examination was otherwise normal on direct and retroflexion views. [facility] ED 10.08.24 pt presents for foreign body stuck in esophagus. OV 10.17.24 pt reports difficulty swallowing, specifically meat. Notes that his father had similar issue and had success with EGD w/ dilation. Pt reports he has never had an EGD before. Denies other GI symptoms of concern at this time. [facility] Medical History Arthritis Leg cramps Former smoker Wears dentures Wears hearing aid Wears glasses HTN (hypertension) Home Medications ?Medication ?Instructions ?Recorded ?Last Taken ?Type ascorbate calcium-bioflavonoid 1 tab PO DAILY 03/20/23 11/14/24 History 1,000 mg-200 mg tablet (Emi-C with Bioflavonoids) cholecalciferol (vitamin D3) 125 25 mcg PO DAILY 03/2011/14/24 History mcg (5,000 unit) capsule hydrochlorothiazide 25 mg tablet 25 mg PO DAILY 11/14/24 History losartan 50 mg tablet 50 mg PO DAILY 03/20/2309/02 History sildenafil 50 mg tablet (Viagra) 50 mg PO DAILY PRN se xual activity 03/20/23 Unknown History cyanocobalamin (vitamin B-12) 1,000 mcg PO DAILY 11/0911/14/24 History 1,000 mcg tablet (Vitamin B-12) Allergy/AdvReac Type Severity Reaction Status Date / Time No Known Allergies Allergy Verified 11/15/24 06:19 Surgical History H/O hernia repair Hx of colonoscopy Social History household members: spouse current occupational status: retired Smoking Status: Former smoker alcohol intake: current details: Occasional beer substance use type: does not use ROS Constitutional Constitutional: Denies fatigue, fever(s), poor appetite, weight gain or weight loss Gastrointestinal Gastrointestinal: Denies belching, bloating, change in bowel habits, change in stool character, chewing difficulty, coffee ground emesis, constipation, cramping, diarrhea, dyspepsia, dysphagia, early satiety, excessive flatus, fecal incontinence, heartburn, hematemesis, hematochezia, hemorrhoids, loose stools, melena, nausea, odynophagia, rectal bleeding, tenesmus, vomiting or weight changes Vital Signs Vital Signs Vital Signs: 11/15/24 06:20 11/15/24 06:20 Temperature 98.4 F Temperature Source Temporal Pulse Rate 72 Respiratory Rate 18 Respiratory Pattern Normal Blood Pressure 129/74 H Blood Pressure Mean 92 Blood Pressure Source Monitor Blood Pressure Position Semi-Fowlers Blood Pressure Location Right Arm Pulse Ox 98 Oxygen Delivery Method Room Air Weight Weight: 202 lb 13.204 oz Body Mass Index (BMI) 27.5 Physical Exam Const alert, oriented x3, no apparent distress and healthy appearing General Appearance: cooperative GI normal to inspection, nondistended, normoactive bowel sounds, soft to palpation, non-tender and non-distended Percussion: normal to percussion Rectal Exam: deferred Assessment & Plan Assessment/Plan (1) Dysphagia: PLAN: Assessment and Plan Assessment and Plan (1) Dysphagia: Status: Acute Plan: 69-year-old male who reports a 3-month history of progressive difficulty swallowing, particularly with solid foods. He describes a sensation of food getting stuck in his mid-chest region, a few seconds after initiating a swallow. The sensation is intermittent but has become more frequent. He has noted changing eating habits, including eating smaller bites and chewing more slowly. He now avoids certain challenging foods like steak and bread. He has had two episodes in the last month where he felt food impaction that resolved after drinking a large amount of water. Differential Diagnosis: * Esophageal carcinoma:?Progressive dysphagia, especially with weight loss, is a major red flag for esophageal cancer in the elderly. Endoscopy with biopsies is mandatory to rule out this possibility. * Peptic stricture:?Chronic, poorly controlled GERD can lead to scarring and narrowing of the esophagus, causing dysphagia. * Achalasia:?A motility disorder where the lower esophageal sphincter (LES) fails to relax. This typically presents with dysphagia to both solids and liquids. The patient's history of primarily solid dysphagia makes it less likely but does not rule it out. * Esophageal web or Schatzki ring:?These are thin, benign constrictions that can cause intermittent dysphagia, often to solids. * Eosinophilic Esophagitis (EoE):?An inflammatory condition that can cause dysphagia and food impaction. It can be seen in older adults. * Sarcopenic dysphagia:?Age-related muscle loss can affect swallowing muscles. While possible, the progressive nature suggests an underlying pathology that requires investigation.? Plan * Diagnostic: * Referral to Gastroenterology:?For urgent evaluation of dysphagia and weight loss. * Esophagogastroduodenoscopy (EGD) with biopsies:?This is the gold standard for evaluating esophageal dysphagia. It allows for direct visualization of the esophageal lining and for taking tissue samples to rule out malignancy, eosinophilic esophagitis, or other inflammatory processes. * Barium Swallow:?This may be performed before EGD to create a roadmap for the nutrition internship, especially if a complex stricture or diverticulum is suspected. * Consider Esophageal Manometry:?If EGD is non-diagnostic, manometry is the gold standard for evaluating esophageal motility disorders like achalasia. * Therapeutic: * Dietary Modification:?Instruct the patient to continue eating smaller, more frequent meals. Advise him to cut food into small, manageable pieces and to chew thoroughly. Avoid problem foods that cause difficulty swallowing. * Positional Strategies:?Advise the patient to remain upright for at least 30 minutes after eating. * Medication Adjustment:?Continue omeprazole, but discuss with the nutrition internship whether a higher dose or alternative acid-suppression therapy is warranted, especially given the history of poor symptom control. * Speech-Language Pathologist (MONORAIL HOOKER) Referral:?For a formal swallowing evaluation and recommendations on compensatory strategies or exercises. * Patient Education: * Explain the importance of prompt and thorough evaluation given his age and progressive symptoms, including weight loss. * Review the serious potential complications of undiagnosed dysphagia, such as malnutrition, dehydration, aspiration pneumonia, and malignancy. ]
--- NOTE | 2024-11-15 06:40 | PRE.ANES_ITS ---
ASA Classification* ASA Classification ASA Classification: 2 Assessment & Plan Anesthesia* Anesthesia Assessment Anesthesia Assessment: Discussed sedation and/or anesthesia options, risks, benefits, and alternatives with patient/parents/legal guardian/POA. Questions invited. The patient/parents/legal guardian/POA seems to understand and agrees to proceed with anesthesia plan. Reviewed the physical assessment, medical history, allergy history and patient home medications list prior to surgery/procedure/anesthetic and documented any changes. Performed airway and anesthesia risk assessments. Anesthesia Type Anesthesia Type: MAC Anesthesia Focused Assessment* Temperature: 98.4 F Pulse Rate: 72 Blood Pressure: 129/74 Respiratory Rate: 18 Pulse Ox: 98 Airway Assessment Mouth opens: >3 cm Mallampati Score: II Labs Anesthesia Preop lab: CBC WBC, (4.4-11.0) 7.1 K/mm3 03/29/24, 10:02 RBC, (4.6-6.2) 4.98 M/mm3 03/29/24, 10:02 Hgb, (13.0-16.5) 14.6 g/dL 03/29/24, 10:02 Hct, (40-54) 44.8 % 03/29/24, 10:02 Plt Count, (150-450) 219 K/mm3 03/29/24, 10:02 CHEMISTRY Potassium, (3.5-5.1) 4.0 mmol/L 03/29/24, 10:02 Sodium, (136-145) 137 mmol/L 03/29/24, 10:02 BUN, (7-18) 14 mg/dL 03/29/24, 10:02 Creatinine, (0.70-1.30) 0.88 mg/dL 03/29/24, 10:02 Glucose, (74-106) 96 mg/dL 03/29/24, 10:02 COAG Pre-Assessment Diagnosis/Proposed Procedure Planned Operative Procedure(s): EGD Anesthesia History Anesthesia History - grinding machine operator automatic: Anesthesia History - grinding machine operator automatic Hx Hospitalization No 11/09/24 12:15 Any Problems With Anesthesia No 11/09/24 12:15 Cholinesterase deficiency No 11/09/24 12:15 You/Your Family Experience No 11/09/24 12:15 fever (hyperthermia) with Relationship Recent Exposure to Contagious No 11/15/24 06:20 Disease Does patient have nerve No 11/09/24 12:15 stimulator Patient instructed to have device shut off --Does patient have Pacemaker No 11/15/24 06:20 or ICD? When Was Last Pacemaker Check QUESTION #4 FULL TEXT: You/Your Family Experience fever (hyperthermia) with Anesthesia Last Oral Intake Last Oral intake: Last Oral Intake NPO since 21:30 11/15/24 06:20 Meds taken in AM with sips of No 11/15/24 06:20 water? Meds patient instructed to take am of surgery PONV PONV - grinding machine operator automatic: PONV - grinding machine operator automatic Female No 11/09/24 12:15 HX of Motion Sickness No 11/09/24 12:15 HX of N/V After Surgery No 11/09/24 12:15 Non-Smoker Yes 11/09/24 12:15 Duration of Surgery greater No 11/09/24 12:15 than 60 minutes Number of Risk Factors 1 11/09/24 12:15 PONV Score Low Risk 11/09/24 12:15 Height & Weight Height & Weight: Anesthesia: Height & Weight Height 6 ft 11/15/24 06:20 Weight: 92 kg 11/15/24 06:20 Body Mass Index (BMI) 27.5 11/15/24 06:20 Respiratory Assessment Respiratory Assessment - grinding machine operator automatic: Respiratory Tract Infection Hx - grinding machine operator automatic Hx Respiratory Tract Infection No 11/09/24 12:15 STOP Sleep Apnea STOP Sleep Apnea - grinding machine operator automatic: STOP Sleep Apnea - grinding machine operator automatic Hx Hypertension Yes 11/09/24 12:15 Hx Sleep Apnea No 11/09/24 12:15 CPAP No 04/29/23 11:40 BIPAP Do you snore loudly (louder No 11/09/24 12:15 than talking or can be heard Do you often feel tired/ No 11/09/24 12:15 fatigued/ sleepy during daytime? Has anyone observed you stop No 11/09/24 12:15 breathing during sleep? STOP Results Negative 11/09/24 12:15 QUESTION #5 FULL TEXT : Do you snore loudly (louder than talking or can be heard through closed doors)? Tobacco Use History Tobacco Use History - grinding machine operator automatic: Tobacco Use History - grinding machine operator automatic Tobacco Use Smoking Status Former smoker 11/09/24 12:15 Hx Tobacco Use No 11/09/24 12:15 Years Smoking Packs Smoked per Day Smoking Cessation Date was No - quit smoking greater 11/09/24 12:15 within the last 15 years than 15 years ago Hx Smoking Cessation Date Hx Smoking Cessation Counseling Hematologic Medial History Hematologic Hx - grinding machine operator automatic: Hematologic Medical Hx - filer and sander Hx of Blood Transfusion No 11/09/24 12:15 Hx of Transfusion in last 3 No 11/09/24 12:15 Months Date of Last Transfusion (if within last 3 months) Ever experience any problems No 11/09/24 12:15 with transfusion(s)? Specify any problems Hx of Preganancy in last 3 N/A 11/09/24 12:15 Months Nurse Filling Out Transfusion VLEHMAN 11/09/24 12:15 & Questions: Date: 11/09/24 11/09/24 12:15 Time: 12:23 11/09/24 12:15 Patient unable to answer at this time (ie. confused, unrespo /Reproduction History /Reproductive History - grinding machine operator automatic: /Reproductive Hx- grinding machine operator automatic Hx Now Gestational Age (in weeks): EDC: Hx Hx Para Hx Section SAB Active Medications Active Medications: Current Medications Generic Name Dose Route Start Last Admin Trade Name Freq PRN Reason Stop Dose Admin Lactated Ringer's 1,000 mls @ 15 mls/hr 11/15/24 06:30 11/15/24 06:30 IV 15 mls/hr .Q48H LASHAE Administration PFSH Medical History Arthritis Leg cramps Former smoker Wears dentures Wears hearing aid Wears glasses HTN (hypertension) Home Medications ?Medication ?Instructions ?Recorded ?Last Taken ?Type ascorbate calcium-bioflavonoid 1 tab PO DAILY 03/20/23 11/14/24 History 1,000 mg-200 mg tablet (Emi-C with Bioflavonoids) cholecalciferol (vitamin D3) 125 25 mcg PO DAILY 03/2011/14/24 History mcg (5,000 unit) capsule hydrochlorothiazide 25 mg tablet 25 mg PO DAILY 11/14/24 History losartan 50 mg tablet 50 mg PO DAILY 03/20/2309/02 History sildenafil 50 mg tablet (Viagra) 50 mg PO DAILY PRN se xual activity 03/20/23 Unknown History cyanocobalamin (vitamin B-12) 1,000 mcg PO DAILY 11/0911/14/24 History 1,000 mcg tablet (Vitamin B-12) Allergy/AdvReac Type Severity Reaction Status Date / Time No Known Allergies Allergy Verified 11/15/24 06:19 Surgical History H/O hernia repair Hx of colonoscopy Social History household members: spouse current occupational status: retired Smoking Status: Former smoker alcohol intake: current details: Occasional beer substance use type: does not use Review of Systems (Anesthesia) ROS Narrative System reviewed and no additional complaints, except as documented.
--- NOTE | 2024-11-15 07:00 | EGD_PTH ---
PATIENT: SONY MONTALVO LOC: EN U#:[id number] AGE/SX: 69/M ROOM: RE11/15/[address]: Dr. Carlito Guo DO : 1955 BED: DIS: 11/15/2024 SPEC #: [id number] RECD: 11/15/24 09:06 STATUS: RHEA REEdi #: [id number] FARHAN: 11/15/24 07:[address]: Carlito Guo DEPT: SURGICAL PATHOLOGY RECD BY: Anton Peña ENTERED: 11/15/24 09:55 SP TYPE: EGD BIOPSY OT DR: Yvon Baron MD Tissues: A - Esophagus, NOS Procedures: Special Stain Group I Surgery Specimen Level IV GMS Stain (control) HEADER OPERATION: EGD with biopsy and dilation PRE-OP DIAGNOSIS: Dysphagia TISSUE SUBMITTED: A- Distal esophagus biopsy MICROSCOPIC DIAGNOSIS A. 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 * Squamous mucosa with reactive changes, mild acute inflammation, and up to 10 eosinophils per high power field. * PASD stain is pending and will be reported in an addendum. Note: The diagnosis depends on the location of the biopsy and the extent of the mucosal irregularity. If the biopsy originates from the tubular esophagus and the mucosal irregularity extends at least 1 cm above the top of the gastric folds, this represents Hubbard mucosa. If the biopsy originates from the gastric cardia and/or the mucosal irregularity is less than 1 cm in extent, this represents intestinal metaplasia. MICROSCOPIC DESCRIPTION Slides are reviewed. GROSS DESCRIPTION A. Received in fixative is one container labeled with the patient's name and designated Distal esophagus biopsy. The specimen consists of multiple irregular fragments of rowell tissue that in aggregate measure 1.5 x 0.8 x 0.2 cm. The specimen is totally submitted in one cassette. [place] 11/15/2024 CPT:33235,89338 ADDENDUM ADDENDUM ADDENDUM ADDENDUM ADDENDUM ADDENDUM ADDENDUM ADDENDUM ADDENDUM ADDENDUM ADDENDUM ADDENDUM 11/24/2024 16:06 ADDENDUM 11/24/2024 16:06 ADDENDUM 11/24/2024 16:06 ADDENDUM 11/24/2024 16:06 ADDENDUM 11/24/2024 16:06 This addendum is to report the special stain: PASD stain is negative for fungal organisms. All matched controls reacted appropriately. These tests were developed and their performance characteristics determined by [facility]. They may not have been cleared or approved by the U.[place]. Food and Drug Administration. The FDA has determined that such clearance or approval is not necessary. The above immunohistochemical markers and/or special stains have been reviewed by the Pathologist.
--- NOTE | 2024-11-15 07:25 | PCM.POST.ANE ---
Anesthesia: Postop Eval I Current Vital Signs Temperature: 97.2 F Pulse Rate: 72 Blood Pressure: 111/67 Respiratory Rate: 16 Pulse Ox: 95 Oxygen Delivery Method: Room Air Assessment Airway patent: Yes Spontaneous unlabored respirations: Yes Mental status: Awake and Calm nausea: No Vomiting: No Anesthesia Complication: No Fluid Hydration Crystalloid volume administer (ml): 400 Total IV fluid infused: 400 Progress Note Anesthesia document: Postop Eval 1 completed: Yes
--- NOTE | 2024-11-15 07:28 | OP.EGD_ITS ---
Patient Name: Kareem Webster Procedure Date: 11/15/2024 7:03 AM Date of : 1955 Age: 69 Procedure: Upper GI endoscopy Indications: Dysphagia Providers: Carlito Guo DO Referring MD: Yvon Baron Md Medicines: Monitored Anesthesia Care Patient Profile: This is a 69 year old male. Refer to note in patient chart for documentation of history and physical. Patient has symptoms of dysphagia with solids. His most recent EGD for dilation was within the past several years. Complications: No immediate complications. Procedure: Pre-Anesthesia Assessment: - Prior to the procedure, a History and Physical was performed, and patient medications and allergies were reviewed. The patient is competent. The risks and benefits of the procedure and the sedation options and risks were discussed with the patient. All questions were answered and informed consent was obtained. Patient identification and proposed procedure were verified by the physician in the pre-procedure area. Mental Status Examination: alert and oriented. Airway Examination: normal oropharyngeal airway and neck mobility. Respiratory Examination: clear to auscultation. CV Examination: normal. Prophylactic Antibiotics: The patient does not require prophylactic antibiotics. Prior Anticoagulants: The patient has taken no anticoagulant or antiplatelet agents. ASA Grade Assessment: II - A patient with mild systemic disease. After reviewing the risks and benefits, the patient was deemed in satisfactory condition to undergo the procedure. The anesthesia plan was to use monitored anesthesia care (MAC). Immediately prior to administration of medications, the patient was re-assessed for adequacy to receive sedatives. The heart rate, respiratory rate, oxygen saturations, blood pressure, adequacy of pulmonary ventilation, and response to care were monitored throughout the procedure. The physical status of the patient was re-assessed after the procedure. After obtaining informed consent, the endoscope was passed under direct vision. Throughout the procedure, the patient's blood pressure, pulse, and oxygen saturations were monitored continuously. The gastroscope was introduced through the mouth, and advanced to the second part of duodenum. The upper GI endoscopy was accomplished without difficulty. The patient tolerated the procedure well. Scope In: 7:07:08 AM Scope Out: 7:14:14 AM Total Procedure Duration Time 0 hours 7 minutes 6 seconds Findings: LA Grade B (one or more mucosal breaks greater than 5 mm, not extending between the tops of two mucosal folds) esophagitis with no bleeding was found 38 to 40 cm from the incisors. Biopsies were taken with a cold forceps for histology. Verification of patient identification for the specimen was done. Estimated blood loss was minimal. One benign-appearing, intrinsic moderate (circumferential scarring or stenosis; an endoscope may pass) stenosis was found 37 to 41 cm from the incisors. This stenosis measured 5 cm (in length). The stenosis was traversed. A guidewire was placed and the scope was withdrawn. Dilation was performed with a Savary dilator with no resistance at 57 Fr. The dilation site was examined following endoscope reinsertion and showed moderate mucosal disruption. Estimated blood loss was minimal. The entire examined stomach was normal. The exam of the duodenum was otherwise normal. Impression: - LA Grade B erosive esophagitis with no bleeding. Biopsied. - Benign-appearing esophageal stenosis. Dilated. - Normal stomach. Recommendation: - Discharge patient to home. - Resume previous diet. - Continue present medications. - Await pathology results. Procedure Code(s): --- Professional --- 88418, Esophagogastroduodenoscopy, flexible, transoral; with insertion of guide wire followed by passage of dilator(s) through esophagus over guide wire 56717, 59,51, Esophagogastroduodenoscopy, flexible, transoral; with biopsy, single or multiple CPT copyright 2021 [employer]. All rights reserved. The codes documented in this report are preliminary and upon contracting engineer review may be revised to meet current compliance requirements. Carlito Guo DO 11/15/2024 7:28:14 AM This report has been signed electronically. Number of Addenda: 0 Note Initiated On: 11/15/2024 7:03 AM
--- NOTE | 2024-11-15 07:29 | OP.PROVAT_ITS ---
11/15/2024 Yvon Baron Md Re : Upper GI endoscopy procedure for Kareem Webster Dear Tod This procedure was performed on Friday, November 15, 2024. My impressions and recommendations are as follows: Impressions : - LA Grade B erosive esophagitis with no bleeding. Biopsied. - Benign-appearing esophageal stenosis. Dilated. - Normal stomach. Recommendations : - Discharge patient to home. - Resume previous diet. - Continue present medications. - Await pathology results. My findings are described in the full procedure note, which is enclosed. If I can be of further assistance, please feel free to contact me at . Sincerely, Carlito Guo, 11/15/2024 7:28:14 AM This report has been signed electronically.
--- NOTE | 2024-11-15 08:21 | PCM.POSTANE2 ---
Anesthesia Postop Eval I Sum Postop Eval Completion status Anesthesia document: Postop Eval 1 completed: Yes Anesthesia Postop Eval I Summary Anesthesia Postop Eval I Summary: Anesthesia Postop Eval I: Assessment Summary Airway patent Yes 11/15/24 07:26 [email or web address] Spontaneous unlabored Yes 11/15/24 07:26 [email or web address] respirations Mental status Awake,Calm 11/15/24 07:26 [email or web address] nausea No 11/15/24 07:26 [email or web address] Vomiting No 11/15/24 07:26 [email or web address] Anesthesia Postop Eval I: Fluid Summary Crystalloid volume administer 400 11/15/24 07:26 [email or web address] (ml) Colloids volume administered ( ml) Blood Product volume administered (ml) Total IV fluid infused 400 11/15/24 07:26 [email or web address] Anesthesia Postop Eval I: Summary Notes Anesthesia Complication No 11/15/24 07:26 [email or web address] Anesthesia Complication Comment: Post-operative progress note Anesthesia: Postop Eval II Evaluation Mental status: Awake Pain Level: 0 nausea: No Vomiting: No
== END 2024-11-15 08:08 | disposition home or self-care (01) ==
LOC: EN 05:48 → AC 05:52
PROVIDERS: PCP Family Medicine; Referring Provider Family Medicine; Visit Provider Internal Medicine Gastroenterology
PROC: 0DJ08ZZ Inspection of Upper Intestinal Tract, Via Natural or Artificial Opening Endoscopic (ICD-10-PCS; CPT 43235; principal; 2024-11-15 06:55)
DX: R13.10 Dysphagia, unspecified (principal); K22.2 Esophageal obstruction; I10 Essential (primary) hypertension; Z87.891 Personal history of nicotine dependence; Z79.899 Other long term (current) drug therapy; K21.00 Gastro-esophageal reflux disease with esophagitis, without bleeding; K31.A0 Gastric intestinal metaplasia, unspecified
CPT/HCPCS: 43248; 43239; 88305; 88312; C1769; J2405